=== PATIENT | female | born 1990 | race American Indian/Alaskan Native ===

== ENCOUNTER 2018-11-30 23:16 | Emergency (ER) | payer SELFPAY ==
[2018-11-30 23:54] LABS: Basophils % (Auto) 0.3 % (0.0-1.8); Eosinophils # (Auto) 0.1 K/mm3 (0.0-0.4); Eosinophils % (Auto) 1.5 % (0.0-4.3); Hemoglobin 14.4 gm/dl (10.1-14.3); Lymphocytes # (Auto) 3.6 K/mm3 (1.2-5.4); Lymphocytes % (Auto) 38.2 % (13.4-35.0); Mean Corpuscular HGB Conc 34 % (30-34); Mean Corpuscular Volume 85 fl (79-97); Monocytes # (Auto) 0.5 K/mm3 (0.0-0.8); Monocytes % (Auto) 5.8 % (0.0-7.3); Platelet Count 234 K/mm3 (140-440); Red Blood Count 4.92 M/mm3 (3.65-5.03); Red Cell Distribution Width 12.8 % (13.2-15.2)
[2018-11-30 23:58] LABS: Bilirubin,Urine NEG (Negative); Blood,Urine NEG (Negative); Color,Urine Yellow (Yellow); Protein,Urine <15 mg/dL mg/dL (Negative); Urobilinogen,Urine < 2.0 mg/dL (<2.0)
[2018-12-01 00:11] LABS: Alanine Aminotransferase 11 units/L (7-56); Albumin 3.8 g/dL (3.9-5); BUN/Creatinine Ratio 23; Blood Urea Nitrogen 16 mg/dL (7-17); Calcium 8.9 mg/dL (8.4-10.2); Hemolysis Index 22
[2018-12-01] MEDS ORDERED: SODIUM CHLORIDE 0.9% 1000 ML 1,000 ML IV ONE ×2 (00:42→02:16)
[2018-12-01] MEDS ORDERED: INSULIN REGULAR, HUMAN 100 UNITS/1 ML IV ONE (00:43)
--- NOTE | 2018-12-01 00:44 | Emergency Department Report ---
ED General Adult HPI - General Chief complaint: Hyperglycemia Stated complaint: POSS HIGH SUGAR/MED REFILL Time Seen by Provider: 12/01/18 00:29 Source: patient Mode of arrival: Ambulatory Limitations: No Limitations - History of Present Illness Initial comments: 28-year-old female with a history of diabetes currently taking insulin twice a day presents to ED complaining of not feeling well vomiting started today. Patient states that she's been out of her insulin for the past 2 days. Patient reports that she feels a pressure glucose is elevated disaffected affect is not from well and she is frequently urinating. sHe denies chest pain, abdominal pain, shortness of breath, blurry vision or any other symptoms. - Related Data Previous Rx's Medication Instructions Recorded Last Taken Type Insulin Aspart [NovoLOG 100 10 units SQ BID #200 units 12/01/18 Unknown Rx UNITS/ML VIAL] Allergies Allergy/AdvReac Type Severity Reaction Status Date / Time No Known Allergies Allergy Unverified 11/30/18 23:32 ED Review of Systems ROS: Stated complaint: POSS HIGH SUGAR/MED REFILL Other details as noted in HPI Comment: All other systems reviewed and negative ED Past Medical Hx - Past Medical History Previous Medical History?: Yes Hx Diabetes: Yes (Type 1) - Surgical History Past Surgical History?: No - Social History Smoking Status: Current Every Day Smoker Substance Use Type: Marijuana - Medications Home Medications: Home Medications Medication Instructions Recorded Confirmed Last Taken Type Insulin Aspart [NovoLOG 100 10 units SQ BID #200 units 12/01/18 Unknown Rx UNITS/ML VIAL] ED Physical Exam - General Limitations: No Limitations General appearance: alert, in no apparent distress - Head Head exam: Present: atraumatic, normocephalic - Eye Eye exam: Present: normal appearance - ENT ENT exam: Present: mucous membranes moist - Neck Neck exam: Present: normal inspection - Respiratory Respiratory exam: Present: normal lung sounds bilaterally. Absent: respiratory distress, wheezes, rales - Cardiovascular Cardiovascular Exam: Present: regular rate, normal rhythm. Absent: systolic murmur, diastolic murmur, rubs, gallop - GI/Abdominal GI/Abdominal exam: Present: soft, normal bowel sounds. Absent: distended, tenderness - Extremities Exam Extremities exam: Present: normal inspection, full ROM - Back Exam Back exam: Present: normal inspection, full ROM. Absent: CVA tenderness (R), CVA tenderness (L) - Neurological Exam Neurological exam: Present: alert, oriented X3, normal gait - Psychiatric Psychiatric exam: Present: normal affect, normal mood - Skin Skin exam: Present: warm, dry, intact, normal color. Absent: rash ED Course Vital Signs 11/30/18 12/01/18 23:24 00:30 Temperature 97.5 F L 97.6 F Pulse Rate 110 H 93 H Respiratory 18 22 Rate Blood Pressure 144/101 Blood Pressure 129/85 [Left] O2 Sat by Pulse 97 99 Oximetry ED Medical Decision Making - Lab Data Result diagrams: 11/30/18 23:34 11/30/18 23:34 Laboratory Last Values WBC 9.4 K/mm3 (4.5-11.0) 11/30/18 23:34 RBC 4.92 M/mm3 (3.65-5.03) 11/30/18 23:34 Hgb 14.4 gm/dl (10.1-14.3) H 11/30/18 23:34 Hct 42.0 % (30.3-42.9) 11/30/18 23:34 MCV 85 fl (79-97) 11/30/18 23:34 MCH 29 pg (28-32) 11/30/18 23:34 MCHC 34 % (30-34) 11/30/18 23:34 RDW 12.8 % (13.2-15.2) L 11/30/18 23:34 Plt Count 234 K/mm3 (140-440) 11/30/18 23:34 Lymph % (Auto) 38.2 % (13.4-35.0) H 11/30/18 23:34 Howard % (Auto) 5.8 % (0.0-7.3) 11/30/18 23:34 Eos % (Auto) 1.5 % (0.0-4.3) 11/30/18 23:34 Baso % (Auto) 0.3 % (0.0-1.8) 11/30/18 23:34 Lymph # 3.6 K/mm3 (1.2-5.4) 11/30/18 23:34 Howard # 0.5 K/mm3 (0.0-0.8) 11/30/18 23:34 Eos # 0.1 K/mm3 (0.0-0.4) 11/30/18 23:34 Baso # 0.0 K/mm3 (0.0-0.1) 11/30/18 23:34 Seg Neutrophils % 54.2 % (40.0-70.0) 11/30/18 23:34 Seg Neutrophils # 5.1 K/mm3 (1.8-7.7) 11/30/18 23:34 VBG pH 7.349 (7.320-7.420) 11/30/18 23:34 Sodium 136 mmol/L (137-145) L 11/30/18 23:34 Potassium 4.3 mmol/L (3.6-5.0) 11/30/18 23:34 Chloride 101.0 mmol/L (98-107) 11/30/18 23:34 Carbon Dioxide 22 mmol/L (22-30) 11/30/18 23:34 Anion Gap 17 mmol/L 11/30/18 23:34 BUN 16 mg/dL (7-17) 11/30/18 23:34 Creatinine 0.7 mg/dL (0.7-1.2) 11/30/18 23:34 Estimated GFR > 60 ml/min 11/30/18 23:34 BUN/Creatinine Ratio 23 % 11/30/18 23:34 Glucose 368 mg/dL (65-100) H 11/30/18 23:34 POC Glucose 332 (70-105) H 11/30/18 23:35 Calcium 8.9 mg/dL (8.4-10.2) 11/30/18 23:34 Total Bilirubin < 0.20 mg/dL (0.1-1.2) 11/30/18 23:34 AST 12 units/L (5-40) 11/30/18 23:34 ALT 11 units/L (7-56) 11/30/18 23:34 Alkaline Phosphatase 81 units/L (35-129) 11/30/18 23:34 Total Protein 7.8 g/dL (6.3-8.2) 11/30/18 23:34 Albumin 3.8 g/dL (3.9-5) L 11/30/18 23:34 Albumin/Globulin Ratio 1.0 % 11/30/18 23:34 Urine Color Yellow (Yellow) 11/30/18 Unknown Urine Turbidity Slightly-cloudy (Clear) 11/30/18 Unknown Urine pH 6.0 (5.0-7.0) 11/30/18 Unknown Ur Specific Mcclure 1.027 (1.003-1.030) 11/30/18 Unknown Urine Protein <15 mg/dl mg/dL (Negative) 11/30/18 Unknown Urine Glucose (UA) >=500 mg/dL (Negative) 11/30/18 Unknown Urine Ketones Neg mg/dL (Negative) 11/30/18 Unknown Urine Blood Neg (Negative) 11/30/18 Unknown Urine Nitrite Neg (Negative) 11/30/18 Unknown Urine Bilirubin Neg (Negative) 11/30/18 Unknown Urine Urobilinogen < 2.0 mg/dL (<2.0) 11/30/18 Unknown Ur Leukocyte Esterase Neg (Negative) 11/30/18 Unknown Urine WBC (Auto) 1.0 /HPF (0.0-6.0) 11/30/18 Unknown Urine RBC (Auto) 3.0 /HPF (0.0-6.0) 11/30/18 Unknown U Epithel Cells (Auto) 8.0 /HPF (0-13.0) 11/30/18 Unknown - Medical Decision Making 28-year-old female with a history of diabetes presents with hyperglycemia. blood glucose was 332. All labs within normal limits. Urinalysis negative for infection. Patient received IV fluids resuscitation ED, 10 units of insulin and Reglan given. Glucose. Blood glucose decreased 143. Discussed the patient will follow up with primary care physician in 3- 5 days. Referrals given. Patient reports feeling much better prior to discharge. Patient discharged with medication refill and Instructions. Patient is in no acute distress. Critical Care Time: Yes Critical care time in (mins) excluding proc time.: 30 Critical care attestation.: If time is entered above; I have spent that time in minutes in the direct care of this critically ill patient, excluding procedure time. ED Disposition Clinical Impression: Hyperglycemia, Diabetes mellitus Disposition: - TO HOME OR SELFCARE Is pt being admited?: No Does the pt Need Aspirin: No Condition: Stable Instructions: Diabetes Mellitus Type 2 in Adults (ED) Additional Instructions: Make sure to follow up with the primary care physician as discussed. Take all your medications as you've been prescribed. If you have any worsening symptoms or develop new symptoms please return to ED immediately. Prescriptions: Insulin Aspart [NovoLOG 100 UNITS/ML VIAL] 10 units SQ BID #200 units Referrals: [facility] [Outside] - 3-5 Days [facility] [Outside] - 3-5 Days Forms: Accompanied Note, Work/School Release Form(ED) Time of Disposition: 03:00
[2018-12-01] MEDS ORDERED: METOCLOPRAMIDE 10 MG/2 ML INJ IV ONE (01:28)
[2018-12-01 03:34] VITALS: BP 113/77
== END 2018-12-01 03:32 | disposition home or self-care (01) ==
LOC: ED 23:16
DX: E10.65 Type 1 diabetes mellitus with hyperglycemia (principal); F17.200 Nicotine dependence, unspecified, uncomplicated; F12.10 Cannabis abuse, uncomplicated
CPT/HCPCS: 36415; 80053; 81001; 82805; 82962; 85025; 96361; 96374; 96375; 99283; J2765; J7030; J1815

== ENCOUNTER 2019-02-17 09:41 | Emergency (ER) | payer SELFPAY ==
[2019-02-17 10:09] VITALS: BP 134/90
--- NOTE | 2019-02-17 10:54 | Emergency Department Report ---
ED ENT HPI - General Chief complaint: Dental/Oral Stated complaint: HEADACHE/TOOTHACHE Time Seen by Provider: 02/17/19 10:49 Source: patient Mode of arrival: Ambulatory Limitations: No Limitations - History of Present Illness Initial comments: pt is a 28 yo female who presents to the ED with c/o left upper dental pain that began a couple months ago. she states a month ago she was started on antibiotics by a dentist before they would extract the tooth. she states after completing the abx she never followed back up with the dentist for extraction. she denies any fever, no facial swelling. PMHx Dm. no allergies to meds. - Related Data Previous Rx's Medication Instructions Recorded Last Taken Type Insulin Aspart (Nf) [NovoLOG 100 10 units SQ BID #200 units 12/01/18 Unknown Rx UNITS/ML VIAL] Allergies Allergy/AdvReac Type Severity Reaction Status Date / Time No Known Allergies Allergy Unverified 11/30/18 23:32 ED Dental HPI - General Chief complaint: Dental/Oral Stated complaint: HEADACHE/TOOTHACHE Time Seen by Provider: 02/17/19 10:49 Source: patient Mode of arrival: Ambulatory Limitations: No Limitations - Related Data Previous Rx's Medication Instructions Recorded Last Taken Type Insulin Aspart (Nf) [NovoLOG 100 10 units SQ BID #200 units 12/01/18 Unknown Rx UNITS/ML VIAL] Allergies Allergy/AdvReac Type Severity Reaction Status Date / Time No Known Allergies Allergy Unverified 11/30/18 23:32 ED Review of Systems ROS: Stated complaint: HEADACHE/TOOTHACHE Other details as noted in HPI Comment: All other systems reviewed and negative ED Past Medical Hx - Past Medical History Previous Medical History?: Yes Hx Diabetes: Yes (Type 1) - Surgical History Past Surgical History?: No - Social History Smoking Status: Current Some Day Smoker Substance Use Type: Alcohol, Marijuana - Medications Home Medications: Home Medications Medication Instructions Recorded Confirmed Last Taken Type Insulin Aspart (Nf) [NovoLOG 100 10 units SQ BID #200 units 12/01/18 Unknown Rx UNITS/ML VIAL] ED Physical Exam - General Limitations: No Limitations General appearance: alert, in no apparent distress - Head Head exam: Present: atraumatic, normocephalic - Eye Eye exam: Present: normal appearance - ENT ENT exam: Present: normal orophraynx, mucous membranes moist, other (cracked tooth present to the left upper jaw, no edema or induration of the gum line, no facial edema, uvula is midline, no uvular edema) - Respiratory Respiratory exam: Present: normal lung sounds bilaterally. Absent: respiratory distress, wheezes, rales, rhonchi, stridor, chest wall tenderness, accessory muscle use, decreased breath sounds, prolonged expiratory - Cardiovascular Cardiovascular Exam: Present: regular rate, normal rhythm, normal heart sounds. Absent: systolic murmur, diastolic murmur, rubs, gallop - Neurological Exam Neurological exam: Present: alert, oriented X3 - Psychiatric Psychiatric exam: Present: normal affect, normal mood - Skin Skin exam: Present: warm, dry, intact ED Course Vital Signs 02/17/19 10:03 Temperature 98.9 F Pulse Rate 124 H Respiratory 18 Rate Blood Pressure 134/90 O2 Sat by Pulse 96 Oximetry ED Medical Decision Making - Medical Decision Making pt is a 28 yo female who presents to the ED with c/o left upper dental pain that began a couple months ago. she states a month ago she was started on antibiotics by a dentist before they would extract the tooth. she states after completing the abx she never followed back up with the dentist for extraction. she denies any fever, no facial swelling. PMHx Dm. no allergies to meds. initial vitals with tachycardia which improved upon repeat, I placed sensor on pt in triage exam room and her repeat HR was 95 and oxygen saturation 97% on RA. on exam: cracked tooth present to the left upper jaw, no edema or induration of the gum line, no facial edema, uvula is midline, no uvular edema. There is no signs of dental infection, dental abscess, facial cellulitis. advised pt to please follow up with a dentist in the next 2-3 days. may take tylenol or ibuprofen for any pain. return to the emergency room for any new or worsening symptoms. There is no medical emergency at this time Medical screening examination performed there is no threat to life or limb pt needs to follow up with a dentist for further evaluation and management Critical care attestation.: If time is entered above; I have spent that time in minutes in the direct care of this critically ill patient, excluding procedure time. ED Disposition Clinical Impression: Cracked tooth, Toothache Disposition: - MED SCREENING EXAM-LEFT Is pt being admited?: No Does the pt Need Aspirin: No Condition: Stable Instructions: Dental Caries (ED), Toothache (ED) Additional Instructions: please follow up with a dentist in the next 2-3 days. may take tylenol or ibuprofen for any pain. return to the emergency room for any new or worsening symptoms. Referrals: [facility] [Outside] - 2-3 Days Forms: Work/School Release Form(ED) Time of Disposition: 10:54 Print Language: BOLIVIAN
== END 2019-02-17 10:58 | disposition left against medical advice (07) ==
LOC: ED 09:41
DX: K03.81 Cracked tooth (principal); F17.200 Nicotine dependence, unspecified, uncomplicated; F12.10 Cannabis abuse, uncomplicated; E10.9 Type 1 diabetes mellitus without complications
CPT/HCPCS: 99281

== ENCOUNTER → 2019-02-22 17:10 | Emergency (ER) | payer SELFPAY | END | disposition left against medical advice (07) | LOC: ED 17:10 | DX: R05 Cough (principal); Z53.21 Procedure and treatment not carried out due to patient leaving prior to being seen by health care provider ==

== ENCOUNTER 2019-04-06 21:59 | Emergency (ER) | payer SELFPAY ==
[2019-04-06] MEDS ORDERED: BUTALB/ACETAMINOPHEN/CAFFEINE TAB PO ONE (22:21)
[2019-04-06] MEDS ORDERED: SODIUM CHLORIDE 0.9% 1000 ML 1,000 ML IV ONE (22:22)
--- NOTE | 2019-04-06 22:26 | Emergency Department Report ---
HPI - General Chief Complaint: Syncope Time Seen by Provider: 04/06/19 22:10 - HPI HPI: Room 24 The patient is a 28-year-old female presenting with chief complaint of syncope. The patient states she donated plasma earlier this evening at approximately 17:00. The patient states this evening she began to feel dizzy and numb diffusely had a syncopal episode. Family reported the patient struck her head or fall. Patient is amnestic to the event. He now complains of left frontal headache. Patient states she ate 2 pieces of chicken and sipped some beer after donating plasma but did not drink a lot of fluids. Patient denies chest pain or shortness of breath Location: [See above] Duration: [See above] Quality: [See above] Severity: [See above] Timing: [See above] Context: [See above] Modifying factors: [See above] Associated signs and symptoms: [see above] ED Past Medical Hx - Past Medical History Previous Medical History?: Yes Hx Hypertension: Yes Hx Diabetes: Yes (Type 1) - Surgical History Past Surgical History?: No - Family History Family history: no significant - Social History Smoking Status: Current Some Day Smoker (occasional) Substance Use Type: None (denies illicit drug use), Alcohol (occasional) - Medications Home Medications: Home Medications Medication Instructions Recorded Confirmed Last Taken Type Insulin Aspart (Nf) [NovoLOG 100 10 units SQ BID #200 units 12/01/18 Unknown Rx UNITS/ML VIAL] Butalb/Acetamin/Caff 50-325-40 1 tab PO Q8HR PRN #10 tablet 04/06/19 Unknown Rx [Fioricet 50-325-40] ED Review of Systems ROS: Stated complaint: SYNCOPAL EPISODE/HEADACHE Other details as noted in HPI Neurological: headache Physical Exam - Physical Exam Vital Signs: Vital Signs 04/06/19 22:11 Temperature 98.5 F Pulse Rate 101 H Respiratory 18 Rate Blood Pressure 95/61 O2 Sat by Pulse 97 Oximetry Physical Exam: GENERAL: The patient is well-developed well-nourished female lying on stretcher not appearing to be in acute distress. [] HEENT: Normocephalic. Atraumatic. Extraocular motions are intact. Patient has moist mucous membranes. NECK: Supple. No meningitic signs are noted. There is no adenopathy noted. CHEST/LUNGS: Clear to auscultation. There is no respiratory distress noted. HEART/CARDIOVASCULAR: Regular. There is no tachycardia. There is no gallop rub or murmur. ABDOMEN: Abdomen is soft, nontender. Patient has normal bowel sounds. There is no abdominal distention. SKIN: There is no rash. There is no edema. There is no diaphoresis. NEURO: The patient is awake, alert, and oriented. The patient is cooperative. The patient has no focal neurologic deficits. The patient has normal speech. Cranial nerves II through XII grossly intact MUSCULOSKELETAL: There is no evidence of acute injury. ED Course Vital Signs 04/06/19 22:11 Temperature 98.5 F Pulse Rate 101 H Respiratory 18 Rate Blood Pressure 95/61 O2 Sat by Pulse 97 Oximetry - Reevaluation(s) Reevaluation #1: 04/06/19 23:53 Patient states she feels good. Studies reviewed with patient and visitor ED Medical Decision Making - Lab Data Result diagrams: 04/06/19 22:27 04/06/19 22:27 Laboratory Tests 04/06/19 04/06/19 04/06/19 22:27 22:27 22:27 WBC 8.4 RBC 4.94 Hgb 14.8 H Hct 42.1 MCV 85 MCH 30 MCHC 35 H RDW 13.7 Plt Count 197 Lymph % (Auto) 27.8 Appling % (Auto) 5.1 Eos % (Auto) 1.0 Baso % (Auto) 0.3 Lymph # 2.4 Appling # 0.4 Eos # 0.1 Baso # 0.0 Seg Neutrophils % 65.8 Seg Neutrophils # 5.6 D-Dimer 181.74 Sodium 133 L Potassium 4.2 Chloride 98.6 Carbon Dioxide 22 Anion Gap 17 BUN 9 Creatinine 0.7 Estimated GFR > 60 BUN/Creatinine Ratio 13 Glucose 319 H Calcium 8.6 Total Creatine Kinase 63 CK-MB (CK-2) 1.2 CK-MB (CK-2) Rel Index 1.9 Troponin T TSH Free T4 HCG, Qual Plasma/Serum Alcohol 04/06/19 04/06/19 04/06/19 22:27 22:27 22:27 WBC RBC Hgb Hct MCV MCH MCHC RDW Plt Count Lymph % (Auto) Appling % (Auto) Eos % (Auto) Baso % (Auto) Lymph # Appling # Eos # Baso # Seg Neutrophils % Seg Neutrophils # D-Dimer Sodium Potassium Chloride Carbon Dioxide Anion Gap BUN Creatinine Estimated GFR BUN/Creatinine Ratio Glucose Calcium Total Creatine Kinase CK-MB (CK-2) CK-MB (CK-2) Rel Index Troponin T < 0.010 TSH 1.350 Free T4 1.15 HCG, Qual Plasma/Serum Alcohol < 0.01 04/06/19 22:27 WBC RBC Hgb Hct MCV MCH MCHC RDW Plt Count Lymph % (Auto) Appling % (Auto) Eos % (Auto) Baso % (Auto) Lymph # Appling # Eos # Baso # Seg Neutrophils % Seg Neutrophils # D-Dimer Sodium Potassium Chloride Carbon Dioxide Anion Gap BUN Creatinine Estimated GFR BUN/Creatinine Ratio Glucose Calcium Total Creatine Kinase CK-MB (CK-2) CK-MB (CK-2) Rel Index Troponin T TSH Free T4 HCG, Qual Negative Plasma/Serum Alcohol - EKG Data -: EKG Interpreted by Pa EKG shows normal: sinus rhythm Rate: normal - EKG Data When compared to previous EKG there are: previous EKG unavailable Interpretation: nonspecific ST-T wave tank (T-wave inversions in leads 3 and aVF) - Radiology Data Radiology results: report reviewed (CT head), image reviewed (CT head) [facility] [address] [place] [address] Cat Scan Report Signed Patient: FER BISHOP MR#: [id number] 9 : 1990 Acct:[id number] Age/Sex: 28 / F ADM Date: 04/06/19 Loc: ED Attending Dr: Ordering Physician: KAMRYN CRAIG MD Date of Service: 04/06/19 Procedure(s): CT head/brain wo con Accession Number(s): [id number] cc: KAMRYN CRAIG MD CT HEAD WITHOUT CONTRAST INDICATION : syncopal episode, headache. TECHNIQUE: Axial, coronal and sagittal CT imaging was performed from the skull apex through the skull base without contrast. All CT scans at this location are performed using CT dose reduction for ALARA by means of automated exposure control. COMPARISON: None available. FINDINGS: PARENCHYMA: No mass, midline shift, hemorrhage, extraaxial collection or acute territorial infarction. VENTRICLES: Symmetric and normal in size. SOFT TISSUES: No significant abnormality of the included soft tissues/orbits. BONES: No acute osseous abnormality. SINUSES: No significant abnormality. ADDITIONAL FINDINGS: None. IMPRESSION: No acute intracranial abnormality. Signer Name: Yuval Miles MD Signed: 04/06/2019 11:03 PM Workstation Name: [id number] Transcribed By: LEE Dictated By: Yuval Miles MD Electronically Authenticated By: Yuval Miles MD Signed Date/Time: 04/06/192302 DD/ 01 TD/TT: - Differential Diagnosis dehydration, hypovolemia, anemia, PE, ACS, ICH Critical care attestation.: If time is entered above; I have spent that time in minutes in the direct care of this critically ill patient, excluding procedure time. ED Disposition Clinical Impression: Syncope Disposition: DC- TO HOME OR SELFCARE Is pt being admited?: No Does the pt Need Aspirin: No Condition: Stable Instructions: Syncope (ED) Additional Instructions: Return to the emergency department should you develop worsening symptoms, inability to tolerate food or liquids, high fever or any other concerns Prescriptions: Butalb/Acetamin/Caff 50-325-40 [Fioricet 50-325-40] 1 tab PO Q8HR PRN #10 tablet PRN Reason: Headache Referrals: [facility] [Outside] - 3-5 Days KYLE OMER MD [Staff Physician] - 3-5 Days Time of Disposition: 23:55
[2019-04-06 22:43] LABS: Basophils % (Auto) 0.3 % (0.0-1.8); Eosinophils # (Auto) 0.1 K/mm3 (0.0-0.4); Hematocrit 42.1 % (30.3-42.9); Hemoglobin 14.8 gm/dl (10.1-14.3); Lymphocytes # (Auto) 2.4 K/mm3 (1.2-5.4); Lymphocytes % (Auto) 27.8 % (13.4-35.0); Mean Corpuscular HGB Conc 35 % (30-34); Mean Corpuscular Volume 85 fl (79-97); Monocytes # (Auto) 0.4 K/mm3 (0.0-0.8); Monocytes % (Auto) 5.1 % (0.0-7.3); Platelet Count 197 K/mm3 (140-440); Red Blood Count 4.94 M/mm3 (3.65-5.03); Red Cell Distribution Width 13.7 % (13.2-15.2)
[2019-04-06 22:59] LABS: BUN/Creatinine Ratio 13; Blood Urea Nitrogen 9 mg/dL (7-17); Calcium 8.6 mg/dL (8.4-10.2); Hemolysis Index 5
--- NOTE | 2019-04-06 23:07 | Cat Scan Report ---
CT HEAD WITHOUT CONTRAST INDICATION : syncopal episode, headache. TECHNIQUE: Axial, coronal and sagittal CT imaging was performed from the skull apex through the skul l base without contrast. All CT scans at this location are performed using CT dose reduction for ALA RA by means of automated exposure control. COMPARISON: None available. FINDINGS: PARENCHYMA: No mass, midline shift, hemorrhage, extraaxial collection or acute territorial infarctio n. VENTRICLES: Symmetric and normal in size. SOFT TISSUES: No significant abnormality of the included soft tissues/orbits. BONES: No acute osseous abnormality. SINUSES: No significant abnormality. ADDITIONAL FINDINGS: None. IMPRESSION: No acute intracranial abnormality. Signer Name: Yuval Miles MD Signed: 04/06/2019 11:03 PM Workstation Name: [id number]
[2019-04-06 23:16] LABS: Free T4 (Free Thyroxine) 1.15 ng/dL (0.76-1.46)
[2019-04-06 23:37] LABS: Creatine Kinase MB 1.2 ng/mL (0.0-4.0)
[2019-04-07 00:56] VITALS: BP 109/68
== END 2019-04-07 00:57 | disposition home or self-care (01) ==
LOC: ED 21:59
DX: R55 Syncope and collapse (principal); I10 Essential (primary) hypertension; E10.9 Type 1 diabetes mellitus without complications; F17.200 Nicotine dependence, unspecified, uncomplicated; Z79.899 Other long term (current) drug therapy
CPT/HCPCS: 36415; 70450; 80048; 82550; 82553; 84439; 84443; 84484; 84703; 85025; 85379; 93005; 93010; 96360; 99284; J7030; 80320; G0480

== ENCOUNTER 2019-05-12 05:34 | Emergency (ER) | payer SELFPAY ==
[2019-05-12 06:07] LABS: Basophils % (Auto) 0.3 % (0.0-1.8); Eosinophils # (Auto) 0.1 K/mm3 (0.0-0.4); Eosinophils % (Auto) 1.4 % (0.0-4.3); Hematocrit 40.3 % (30.3-42.9); Hemoglobin 13.9 gm/dl (10.1-14.3); Lymphocytes # (Auto) 2.4 K/mm3 (1.2-5.4); Lymphocytes % (Auto) 37.2 % (13.4-35.0); Mean Corpuscular HGB Conc 35 % (30-34); Mean Corpuscular Volume 86 fl (79-97); Monocytes # (Auto) 0.4 K/mm3 (0.0-0.8); Monocytes % (Auto) 6.5 % (0.0-7.3); Platelet Count 232 K/mm3 (140-440); Red Cell Distribution Width 13.3 % (13.2-15.2)
[2019-05-12 06:25] LABS: BUN/Creatinine Ratio 14; Blood Urea Nitrogen 10 mg/dL (7-17); Calcium 8.4 mg/dL (8.4-10.2); Hemolysis Index 27
[2019-05-12 06:46] LABS: HCG Qualitative,Urine Negative (Negative)
[2019-05-12 06:48] LABS: Bilirubin,Urine NEG (Negative); Blood,Urine NEG (Negative); Color,Urine Yellow (Yellow); Protein,Urine <15 mg/dL mg/dL (Negative); Urobilinogen,Urine < 2.0 mg/dL (<2.0)
[2019-05-12 08:45] VITALS: BP 136/92
[2019-05-12] MEDS ORDERED: SODIUM CHLORIDE 0.9% 1000 ML 1,000 ML IV ONE (09:49)
--- NOTE | 2019-05-12 10:07 | Emergency Department Report ---
ED General Adult HPI - General Chief complaint: Hyperglycemia Stated complaint: SORE THROAT, ELEVATED BLOOD SUGAR Time Seen by Provider: 05/12/19 09:47 Source: patient Mode of arrival: Ambulatory Limitations: No Limitations - History of Present Illness Initial comments: This is a 28-year-old -Irish female who presents to the emergency room with hyperglycemia. Past medical history of diabetes type 1 and hypertension. Patient states she ran out of insulin 2 weeks ago. She continue to get readings in the high 200s and 300s. Patient also reports sore throat for 1 week. She denies urinary frequency, urgency, vaginal discharge, pruritus, and dipsesis. Onset/Timin -: week(s) Severity scale (0 -10): 0 Quality: aching Consistency: intermittent Improves with: none Worsens with: eating Associated Symptoms: other (Sore throat). denies: confusion, chest pain, cough, diaphoresis, fever/chills, headaches, loss of appetite, malaise, naus ea/vomiting, rash, seizure, shortness of breath, syncope, weakness Treatments Prior to Arrival: none - Related Data Previous Rx's Medication Instructions Recorded Last Taken Type Insulin Aspart (Nf) [NovoLOG 100 10 units SQ BID #200 units 12/01/18 Unknown Rx UNITS/ML VIAL] Butalb/Acetamin/Caff 50-325-40 1 tab PO Q8HR PRN #10 tablet 04/06/19 Unknown Rx [Fioricet 50-325-40] Insulin NPH Hum/Reg Insulin Hm 100 unit SQ BID #1 vial 05/12/19 Unknown Rx [Novolin 70-30 100 Unit/ml Vial] Allergies Allergy/AdvReac Type Severity Reaction Status Date / Time No Known Allergies Allergy Verified 05/12/19 05:38 ED Review of Systems ROS: Stated complaint: SORE THROAT, ELEVATED BLOOD SUGAR Other details as noted in HPI Constitutional: denies: chills, fever ENT: throat pain. denies: dental pain, hearing loss, epistaxis, congestion Respiratory: denies: cough, shortness of breath, wheezing Cardiovascular: denies: chest pain, palpitations Endocrine: no symptoms reported Gastrointestinal: denies: abdominal pain, nausea, diarrhea Genitourinary: denies: urgency, dysuria, discharge Musculoskeletal: denies: back pain, joint swelling, arthralgia Skin: denies: rash, lesions Neurological: denies: headache, weakness, paresthesias Psychiatric: denies: anxiety, depression ED Past Medical Hx - Past Medical History Previous Medical History?: Yes Hx Hypertension: Yes Hx Diabetes: Yes (Type 1) - Surgical History Past Surgical History?: No - Social History Smoking Status: Current Every Day Smoker Substance Use Type: Marijuana - Medications Home Medications: Home Medications Medication Instructions Recorded Confirmed Last Taken Type Insulin Aspart (Nf) [NovoLOG 100 10 units SQ BID #200 units 12/01/18 Unknown Rx UNITS/ML VIAL] Butalb/Acetamin/Caff 50-325-40 1 tab PO Q8HR PRN #10 tablet 04/06/19 Unknown Rx [Fioricet 50-325-40] Insulin NPH Hum/Reg Insulin Hm 100 unit SQ BID #1 vial 05/12/19 Unknown Rx [Novolin 70-30 100 Unit/ml Vial] ED Physical Exam - General Limitations: No Limitations General appearance: alert, in no apparent distress, obese (morbidly) - ENT ENT exam: Present: normal orophraynx, mucous membranes moist, TM's normal bilaterally, normal external ear exam - Respiratory Respiratory exam: Present: normal lung sounds bilaterally. Absent: respiratory distress - Cardiovascular Cardiovascular Exam: Present: regular rate, normal rhythm. Absent: systolic murmur, diastolic murmur, rubs, gallop - GI/Abdominal GI/Abdominal exam: Present: soft, normal bowel sounds. Absent: distended, tenderness, guarding, rebound, rigid - Extremities Exam Extremities exam: Present: normal inspection - Neurological Exam Neurological exam: Present: alert, oriented X3, normal gait - Psychiatric Psychiatric exam: Present: normal affect, normal mood - Skin Skin exam: Present: warm, dry, intact, normal color. Absent: rash ED Course Vital Signs 05/12/19 05/12/19 05:38 08:44 Temperature 98.0 F Pulse Rate 92 H 81 Respiratory 18 18 Rate Blood Pressure 158/84 Blood Pressure 136/92 [Right] O2 Sat by Pulse 97 98 Oximetry ED Medical Decision Making - Lab Data Result diagrams: 05/12/19 05:55 05/12/19 05:55 Lab Results 05/12/19 05/12/19 05/12/19 Range/Units 05:52 05:55 05:55 WBC 6.4 (4.5-11.0) K/mm3 RBC 4.70 (3.65-5.03) M/mm3 Hgb 13.9 (10.1-14.3) gm/dl Hct 40.3 (30.3-42.9) % MCV 86 (79-97) fl MCH 30 (28-32) pg MCHC 35 H (30-34) % RDW 13.3 (13.2-15.2) % Plt Count 232 (140-440) K/mm3 Lymph % (Auto) 37.2 H (13.4-35.0) % [place] % (Auto) 6.5 (0.0-7.3) % Eos % (Auto) 1.4 (0.0-4.3) % Baso % (Auto) 0.3 (0.0-1.8) % Lymph # 2.4 (1.2-5.4) K/mm3 Mason # 0.4 (0.0-0.8) K/mm3 Eos # 0.1 (0.0-0.4) K/mm3 Baso # 0.0 (0.0-0.1) K/mm3 Seg Neutrophils % 54.6 (40.0-70.0) % Seg Neutrophils # 3.5 (1.8-7.7) K/mm3 Sodium 134 L (137-145) mmol/L Potassium 4.2 (3.6-5.0) mmol/L Chloride 100.8 (98-107) mmol/L Carbon Dioxide 20 L (22-30) mmol/L Anion Gap 17 mmol/L BUN 10 (7-17) mg/dL Creatinine 0.7 (0.7-1.2) mg/dL Estimated GFR > 60 ml/min BUN/Creatinine Ratio 14 % Glucose 306 H (65-100) mg/dL POC Glucose 271 H (70-105) Calcium 8.4 (8.4-10.2) mg/dL Urine Color (Yellow) Urine Turbidity (Clear) Urine pH (5.0-7.0) Ur Specific [place] (1.003-1.030) Urine Protein (Negative) mg/dL Urine Glucose (UA) (Negative) mg/dL Urine Ketones (Negative) mg/dL Urine Blood (Negative) Urine Nitrite (Negative) Ur Reducing Substances Urine Bilirubin (Negative) Urine Ictotest Urine Urobilinogen (<2.0) mg/dL Ur Leukocyte Esterase (Negative) Urine WBC (Auto) (0.0-6.0) /HPF Urine RBC (Auto) (0.0-6.0) /HPF U Epithel Cells (Auto) (0-13.0) /HPF Urine HCG, Qual (Negative) Group A Strep Rapid (Negative) 05/12/19 05/12/19 Range/Units 06:14 Unknown WBC (4.5-11.0) K/mm3 RBC (3.65-5.03) M/mm3 Hgb (10.1-14.3) gm/dl Hct (30.3-42.9) % MCV (79-97) fl MCH (28-32) pg MCHC (30-34) % RDW (13.2-15.2) % Plt Count (140-440) K/mm3 Lymph % (Auto) (13.4-35.0) % Mason % (Auto) (0.0-7.3) % Eos % (Auto) (0.0-4.3) % Baso % (Auto) (0.0-1.8) % Lymph # (1.2-5.4) K/mm3 Mason # (0.0-0.8) K/mm3 Eos # (0.0-0.4) K/mm3 Baso # (0.0-0.1) K/mm3 Seg Neutrophils % (40.0-70.0) % Seg Neutrophils # (1.8-7.7) K/mm3 Sodium (137-145) mmol/L Potassium (3.6-5.0) mmol/L Chloride (98-107) mmol/L Carbon Dioxide (22-30) mmol/L Anion Gap mmol/L BUN (7-17) mg/dL Creatinine (0.7-1.2) mg/dL Estimated GFR ml/min BUN/Creatinine Ratio % Glucose (65-100) mg/dL POC Glucose (70-105) Calcium (8.4-10.2) mg/dL Urine Color Yellow (Yellow) Urine Turbidity Slightly-cloudy (Clear) Urine pH 6.0 (5.0-7.0) Ur Specific [place] 1.030 (1.003-1.030) Urine Protein <15 mg/dl (Negative) mg/dL Urine Glucose (UA) >=500 (Negative) mg/dL Urine Ketones Neg (Negative) mg/dL Urine Blood Neg (Negative) Urine Nitrite Neg (Negative) Ur Reducing Substances Not Reportable Urine Bilirubin Neg (Negative) Urine Ictotest Not Reportable Urine Urobilinogen < 2.0 (<2.0) mg/dL Ur Leukocyte Esterase Neg (Negative) Urine WBC (Auto) 1.0 (0.0-6.0) /HPF Urine RBC (Auto) 3.0 (0.0-6.0) /HPF U Epithel Cells (Auto) 9.0 (0-13.0) /HPF Urine HCG, Qual Negative (Negative) Group A Strep Rapid Negative (Negative) - Medical Decision Making This is a 28 y.o. female that presents with elevated blood glucose and sore throat. History of diabetes type 1 and hypertension. Patient ran out of her ScreenHits 70/30 for 2 weeks ago. Vitals are stable and in no acute distress. Obtained BMP, CBC, UA, & rapid strep. Review labs. Glucose 271 on admission. Given NS 1L bolus once. Rapid strep negative. Throat culture pending. Continue current insulin dose and f/u with Endo or PCP in 24-72 hours. Discussed plan with patient and agreed to plan. No further questions noted by the patient. Discharged home in stable condition. Referral to [facility] for continued care. Critical care attestation.: If time is entered above; I have spent that time in minutes in the direct care of this critically ill patient, excluding procedure time. ED Disposition Clinical Impression: Hyperglycemia due to type 1 diabetes mellitus, Sore throat (viral) Disposition: TO HOME OR SELFCARE Is pt being admited?: No Condition: Stable Instructions: Strep Throat (ED), Diabetes Mellitus Type 1 in Adults (ED) Additional Instructions: Never discontinue insulin without discussion with your primary care doctor. Low blood sugar is often accompanied by symptoms such as tachycardia, sweating, shakiness, intense hunger, or confusion, and must be dealt with promptly by eating a carbohydrate such as apple or drink juice. After self-treatment, blood sugar should be checked if possible. Return to ER or f/u with ER promptly is blood glucose drops below 70 or greater than 150 so that therapy may be adjusted. Eat a carbohydrate snack prior to exercise if blood glucose is less than 100. Follow up with a Primary Care Provider doctor from the list provided in 24-72 days. Prescriptions: Insulin NPH Hum/Reg Insulin Hm [Novolin 70-30 100 Unit/ml Vial] 100 unit SQ BID #1 vial Referrals: [facility] [Outside] - 3-5 Days MIGUEL LAMB MD [Staff Physician] - 3-5 Days Forms: Work/School Release Form(ED) Time of Disposition: 10:24
== END 2019-05-12 10:49 | disposition home or self-care (01) ==
LOC: ED 05:34
DX: E10.65 Type 1 diabetes mellitus with hyperglycemia (principal); J02.8 Acute pharyngitis due to other specified organisms; B97.89 Other viral agents as the cause of diseases classified elsewhere; I10 Essential (primary) hypertension; F17.200 Nicotine dependence, unspecified, uncomplicated; F12.10 Cannabis abuse, uncomplicated; Z79.4 Long term (current) use of insulin; Z79.899 Other long term (current) drug therapy
CPT/HCPCS: 36415; 80048; 81001; 81025; 82962; 85025; 87116; 87430; 99283; J7030

== ENCOUNTER 2019-12-09 08:34 | Emergency (ER) | payer SELFPAY ==
[2019-12-09 08:47] VITALS: BP 163/107
[2019-12-09 09:43] LABS: Bilirubin,Urine NEG (Negative); Blood,Urine NEG (Negative); Color,Urine Yellow (Yellow); Protein,Urine <15 mg/dL mg/dL (Negative); Urobilinogen,Urine < 2.0 mg/dL (<2.0)
[2019-12-09 09:46] LABS: HCG Qualitative,Urine Negative (Negative)
[2019-12-09] MEDS ORDERED: SODIUM CHLORIDE 0.9% 1000 ML 1,000 ML IV ONE (10:00)
[2019-12-09] MEDS ORDERED: KETOROLAC 30 MG/1 ML INJ IV ONE (10:00)
[2019-12-09 10:23] LABS: Basophils % (Auto) 0.4 % (0.0-1.8); Eosinophils # (Auto) 0.1 K/mm3 (0.0-0.4); Eosinophils % (Auto) 0.9 % (0.0-4.3); Hematocrit 41.7 % (30.3-42.9); Hemoglobin 14.4 gm/dl (10.1-14.3); Lymphocytes # (Auto) 2.5 K/mm3 (1.2-5.4); Lymphocytes % (Auto) 32.1 % (13.4-35.0); Mean Corpuscular HGB Conc 34 % (30-34); Mean Corpuscular Volume 85 fl (79-97); Monocytes # (Auto) 0.5 K/mm3 (0.0-0.8); Monocytes % (Auto) 6.5 % (0.0-7.3); Platelet Count 239 K/mm3 (140-440); Red Blood Count 4.93 M/mm3 (3.65-5.03); Red Cell Distribution Width 13.4 % (13.2-15.2)
[2019-12-09 10:43] LABS: Alanine Aminotransferase 13 units/L (7-56); Calcium 9.4 mg/dL (8.4-10.2); Hemolysis Index 4
--- NOTE | 2019-12-09 10:53 | Emergency Department Report ---
ED Back Pain/Injury HPI - General Chief Complaint: Back Pain/Injury Stated Complaint: BACK PAIN Time Seen by Provider: 12/09/19 09:59 Source: patient Limitations: No Limitations - History of Present Illness Initial Comments: This is a 29-year-old female nontoxic, well nourished in appearance, no acute signs of distress presents to the ED with c/o of acute on chronic lower back pain. Patient denies any radiation of pain. Patient denies any trauma. Denies any bladder or bowel instability. Patient denies any urinary symptoms. Denies any fever, chills, nausea, vomiting, headache, stiff neck, chest pain or shortness of breath. Patient denies any numbness or tingling. Denies any allergies. PMH includes DM which she has not taken insulin the past 2 days but does have insulin medications at home. MD Complaint: back pain -: days(s) Similar Symptoms Previously: Yes Radiation: none Severity: mild Severity scale (0 -10): 8 Quality: aching Consistency: constant Improves With: immobilization, sitting upright Worsens With: movement, walking Context: while lifting, turning/twisting Associated Symptoms: denies other symptoms. denies: confusion, weakness, chest pain, numbness, difficulty walking, cough, difficulty urinating, diaphoresis, incontinence, fever/chills, constipation, headaches, abdominal pain, loss of appetite, malaise, nausea/vomiting, rash, seizure, shortness of breath, syncope - Related Data Previous Rx's Medication Instructions Recorded Last Taken Type Insulin Aspart (Nf) [NovoLOG 100 10 units SQ BID #200 units 12/01/18 Unknown Rx UNITS/ML VIAL] Butalb/Acetamin/Caff 50-325-40 1 tab PO Q8HR PRN #10 tablet 04/06/19 Unknown Rx [Fioricet 50-325-40] Insulin NPH Hum/Reg Insulin Hm 100 unit SQ BID #1 vial 05/12/19 Unknown Rx [Novolin 70-30 100 Unit/ml Vial] Cyclobenzaprine [Flexeril] 10 mg PO QHS PRN #10 tablet 12/09/19 Unknown Rx Naproxen 500 mg PO Q12H PRN #12 tablet 12/09/19 Unknown Rx Allergies Allergy/AdvReac Type Severity Reaction Status Date / Time No Known Allergies Allergy Verified 05/12/19 05:38 ED Review of Systems ROS: Stated complaint: BACK PAIN Other details as noted in HPI Constitutional: denies: chills, fever Eyes: denies: eye pain, eye discharge, vision change ENT: denies: ear pain, throat pain Respiratory: denies: cough, shortness of breath, wheezing Cardiovascular: denies: chest pain, palpitations Endocrine: no symptoms reported Gastrointestinal: denies: abdominal pain, nausea, diarrhea Genitourinary: denies: urgency, dysuria, discharge Musculoskeletal: back pain. denies: joint swelling, arthralgia Skin: denies: rash, lesions Neurological: denies: headache, weakness, paresthesias Psychiatric: denies: anxiety, depression Hematological/Lymphatic: denies: easy bleeding, easy bruising ED Past Medical Hx - Past Medical History Previous Medical History?: Yes Hx Hypertension: Yes Hx Diabetes: Yes (Type 1) - Surgical History Past Surgical History?: No - Social History Smoking Status: Former Smoker Substance Use Type: None - Medications Home Medications: Home Medications Medication Instructions Recorded Confirmed Last Taken Type Insulin Aspart (Nf) [NovoLOG 100 10 units SQ BID #200 units 12/01/18 Unknown Rx UNITS/ML VIAL] Butalb/Acetamin/Caff 50-325-40 1 tab PO Q8HR PRN #10 tablet 04/06/19 Unknown Rx [Fioricet 50-325-40] Insulin NPH Hum/Reg Insulin Hm 100 unit SQ BID #1 vial 05/12/19 Unknown Rx [Novolin 70-30 100 Unit/ml Vial] Cyclobenzaprine [Flexeril] 10 mg PO QHS PRN #10 tablet 12/09/19 Unknown Rx Naproxen 500 mg PO Q12H PRN #12 tablet 12/09/19 Unknown Rx ED Physical Exam - General Limitations: No Limitations General appearance: alert, in no apparent distress - Head Head exam: Present: atraumatic, normocephalic - Eye Eye exam: Present: normal appearance - Neck Neck exam: Present: normal inspection, full ROM. Absent: tenderness, meningismus, lymphadenopathy - Respiratory Respiratory exam: Present: normal lung sounds bilaterally. Absent: respiratory distress, wheezes, rales, rhonchi, stridor, chest wall tenderness, accessory muscle use, decreased breath sounds, prolonged expiratory - Cardiovascular Cardiovascular Exam: Present: regular rate, normal rhythm, normal heart sounds. Absent: irregular rhythm, systolic murmur, diastolic murmur, rubs, gallop - GI/Abdominal GI/Abdominal exam: Present: soft, normal bowel sounds. Absent: distended, tenderness, guarding, rebound, rigid, diminished bowel sounds - Extremities Exam Extremities exam: Present: normal inspection, full ROM - Back Exam Back exam: Present: normal inspection, full ROM, paraspinal tenderness (lumbar paraspinal). Absent: tenderness, CVA tenderness (R), CVA tenderness (L), muscle spasm, vertebral tenderness, rash noted - Expanded Back Exam Expanded Back exam: Absent: saddle anesthesia Back exam: Negative Straight Leg Raising: Left, Right - Neurological Exam Neurological exam: Present: alert, oriented X3, normal gait - Psychiatric Psychiatric exam: Present: normal affect, normal mood - Skin Skin exam: Present: warm, dry, intact, normal color. Absent: rash ED Course Vital Signs 12/09/19 08:39 Temperature 98.6 F Pulse Rate 97 H Respiratory 20 Rate Blood Pressure 163/107 O2 Sat by Pulse 97 Oximetry - Reevaluation(s) Reevaluation #1: 12/09/19 10:54 Patient is speaking in full sentences with no signs of distress noted. ED Medical Decision Making - Lab Data Result diagrams: 12/09/19 10:07 12/09/19 10:07 Lab Results 12/09/19 12/09/19 12/09/19 Range/Units 09:00 10:07 10:07 WBC 7.7 (4.5-11.0) K/mm3 RBC 4.93 (3.65-5.03) M/mm3 Hgb 14.4 H (10.1-14.3) gm/dl Hct 41.7 (30.3-42.9) % MCV 85 (79-97) fl MCH 29 (28-32) pg MCHC 34 (30-34) % RDW 13.4 (13.2-15.2) % Plt Count 239 (140-440) K/mm3 Lymph % (Auto) 32.1 (13.4-35.0) % Page % (Auto) 6.5 (0.0-7.3) % Eos % (Auto) 0.9 (0.0-4.3) % Baso % (Auto) 0.4 (0.0-1.8) % Lymph # (Auto) 2.5 (1.2-5.4) K/mm3 Page # (Auto) 0.5 (0.0-0.8) K/mm3 Eos # (Auto) 0.1 (0.0-0.4) K/mm3 Baso # (Auto) 0.0 (0.0-0.1) K/mm3 Seg Neutrophils % 60.1 (40.0-70.0) % Seg Neutrophils # 4.6 (1.8-7.7) K/mm3 VBG pH (7.320-7.420) Sodium 135 L (137-145) mmol/L Potassium 4.1 (3.6-5.0) mmol/L Chloride 98.4 (98-107) mmol/L Carbon Dioxide 22 (22-30) mmol/L Anion Gap 19 mmol/L Creatinine 0.6 (0.6-1.2) mg/dL Estimated GFR > 60 ml/min Glucose 295 H (65-100) mg/dL POC Glucose 263 H (70-105) Calcium 9.4 (8.4-10.2) mg/dL Total Bilirubin 0.20 (0.1-1.2) mg/dL AST 12 (5-40) units/L ALT 13 (7-56) units/L Alkaline Phosphatase 63 (35-129) units/L Total Protein 7.7 (6.3-8.2) g/dL Albumin 4.0 (3.9-5) g/dL Albumin/Globulin Ratio 1.1 % Urine Color (Yellow) Urine Turbidity (Clear) Urine pH (5.0-7.0) Ur Specific [place] (1.003-1.030) Urine Protein (Negative) mg/dL Urine Glucose (UA) (Negative) mg/dL Urine Ketones (Negative) mg/dL Urine Blood (Negative) Urine Nitrite (Negative) Urine Bilirubin (Negative) Urine Urobilinogen (<2.0) mg/dL Ur Leukocyte Esterase (Negative) Urine WBC (Auto) (0.0-6.0) /HPF Urine RBC (Auto) (0.0-6.0) /HPF U Epithel Cells (Auto) (0-13.0) /HPF Urine HCG, Qual (Negative) 12/09/19 12/09/19 Range/Units 10:07 Unknown WBC (4.5-11.0) K/mm3 RBC (3.65-5.03) M/mm3 Hgb (10.1-14.3) gm/dl Hct (30.3-42.9) % MCV (79-97) fl MCH (28-32) pg MCHC (30-34) % RDW (13.2-15.2) % Plt Count (140-440) K/mm3 Lymph % (Auto) (13.4-35.0) % Page % (Auto) (0.0-7.3) % Eos % (Auto) (0.0-4.3) % Baso % (Auto) (0.0-1.8) % Lymph # (Auto) (1.2-5.4) K/mm3 Page # (Auto) (0.0-0.8) K/mm3 Eos # (Auto) (0.0-0.4) K/mm3 Baso # (Auto) (0.0-0.1) K/mm3 Seg Neutrophils % (40.0-70.0) % Seg Neutrophils # (1.8-7.7) K/mm3 VBG pH 7.314 L (7.320-7.420) Sodium (137-145) mmol/L Potassium (3.6-5.0) mmol/L Chloride (98-107) mmol/L Carbon Dioxide (22-30) mmol/L Anion Gap mmol/L Creatinine (0.6-1.2) mg/dL Estimated GFR ml/min Glucose (65-100) mg/dL POC Glucose (70-105) Calcium (8.4-10.2) mg/dL Total Bilirubin (0.1-1.2) mg/dL AST (5-40) units/L ALT (7-56) units/L Alkaline Phosphatase (35-129) units/L Total Protein (6.3-8.2) g/dL Albumin (3.9-5) g/dL Albumin/Globulin Ratio % Urine Color Yellow (Yellow) Urine Turbidity Clear (Clear) Urine pH 5.0 (5.0-7.0) Ur Specific [place] 1.025 (1.003-1.030) Urine Protein <15 mg/dl (Negative) mg/dL Urine Glucose (UA) >=500 (Negative) mg/dL Urine Ketones Neg (Negative) mg/dL Urine Blood Neg (Negative) Urine Nitrite Neg (Negative) Urine Bilirubin Neg (Negative) Urine Urobilinogen < 2.0 (<2.0) mg/dL Ur Leukocyte Esterase Neg (Negative) Urine WBC (Auto) 1.0 (0.0-6.0) /HPF Urine RBC (Auto) 3.0 (0.0-6.0) /HPF U Epithel Cells (Auto) 10.0 (0-13.0) /HPF Urine HCG, Qual Negative (Negative) Lab Results 12/09/19 12/09/19 12/09/19 Range/Units 09:00 10:07 10:07 WBC 7.7 (4.5-11.0) K/mm3 RBC 4.93 (3.65-5.03) M/mm3 Hgb 14.4 H (10.1-14.3) gm/dl Hct 41.7 (30.3-42.9) % MCV 85 (79-97) fl MCH 29 (28-32) pg MCHC 34 (30-34) % RDW 13.4 (13.2-15.2) % Plt Count 239 (140-440) K/mm3 Lymph % (Auto) 32.1 (13.4-35.0) % Page % (Auto) 6.5 (0.0-7.3) % Eos % (Auto) 0.9 (0.0-4.3) % Baso % (Auto) 0.4 (0.0-1.8) % Lymph # (Auto) 2.5 (1.2-5.4) K/mm3 Page # (Auto) 0.5 (0.0-0.8) K/mm3 Eos # (Auto) 0.1 (0.0-0.4) K/mm3 Baso # (Auto) 0.0 (0.0-0.1) K/mm3 Seg Neutrophils % 60.1 (40.0-70.0) % Seg Neutrophils # 4.6 (1.8-7.7) K/mm3 VBG pH (7.320-7.420) Sodium 135 L (137-145) mmol/L Potassium 4.1 (3.6-5.0) mmol/L Chloride 98.4 (98-107) mmol/L Carbon Dioxide 22 (22-30) mmol/L Anion Gap 19 mmol/L Creatinine 0.6 (0.6-1.2) mg/dL Estimated GFR > 60 ml/min Glucose 295 H (65-100) mg/dL POC Glucose 263 H (70-105) Calcium 9.4 (8.4-10.2) mg/dL Total Bilirubin 0.20 (0.1-1.2) mg/dL AST 12 (5-40) units/L ALT 13 (7-56) units/L Alkaline Phosphatase 63 (35-129) units/L Total Protein 7.7 (6.3-8.2) g/dL Albumin 4.0 (3.9-5) g/dL Albumin/Globulin Ratio 1.1 % Urine Color (Yellow) Urine Turbidity (Clear) Urine pH (5.0-7.0) Ur Specific [place] (1.003-1.030) Urine Protein (Negative) mg/dL Urine Glucose (UA) (Negative) mg/dL Urine Ketones (Negative) mg/dL Urine Blood (Negative) Urine Nitrite (Negative) Urine Bilirubin (Negative) Urine Urobilinogen (<2.0) mg/dL Ur Leukocyte Esterase (Negative) Urine WBC (Auto) (0.0-6.0) /HPF Urine RBC (Auto) (0.0-6.0) /HPF U Epithel Cells (Auto) (0-13.0) /HPF Urine HCG, Qual (Negative) 12/09/19 12/09/19 12/09/19 Range/Units 10:07 11:54 Unknown WBC (4.5-11.0) K/mm3 RBC (3.65-5.03) M/mm3 Hgb (10.1-14.3) gm/dl Hct (30.3-42.9) % MCV (79-97) fl MCH (28-32) pg MCHC (30-34) % RDW (13.2-15.2) % Plt Count (140-440) K/mm3 Lymph % (Auto) (13.4-35.0) % Page % (Auto) (0.0-7.3) % Eos % (Auto) (0.0-4.3) % Baso % (Auto) (0.0-1.8) % Lymph # (Auto) (1.2-5.4) K/mm3 Page # (Auto) (0.0-0.8) K/mm3 Eos # (Auto) (0.0-0.4) K/mm3 Baso # (Auto) (0.0-0.1) K/mm3 Seg Neutrophils % (40.0-70.0) % Seg Neutrophils # (1.8-7.7) K/mm3 VBG pH 7.314 L (7.320-7.420) Sodium (137-145) mmol/L Potassium (3.6-5.0) mmol/L Chloride (98-107) mmol/L Carbon Dioxide (22-30) mmol/L Anion Gap mmol/L Creatinine (0.6-1.2) mg/dL Estimated GFR ml/min Glucose (65-100) mg/dL POC Glucose 246 H (70-105) Calcium (8.4-10.2) mg/dL Total Bilirubin (0.1-1.2) mg/dL AST (5-40) units/L ALT (7-56) units/L Alkaline Phosphatase (35-129) units/L Total Protein (6.3-8.2) g/dL Albumin (3.9-5) g/dL Albumin/Globulin Ratio % Urine Color Yellow (Yellow) Urine Turbidity Clear (Clear) Urine pH 5.0 (5.0-7.0) Ur Specific [place] 1.025 (1.003-1.030) Urine Protein <15 mg/dl (Negative) mg/dL Urine Glucose (UA) >=500 (Negative) mg/dL Urine Ketones Neg (Negative) mg/dL Urine Blood Neg (Negative) Urine Nitrite Neg (Negative) Urine Bilirubin Neg (Negative) Urine Urobilinogen < 2.0 (<2.0) mg/dL Ur Leukocyte Esterase Neg (Negative) Urine WBC (Auto) 1.0 (0.0-6.0) /HPF Urine RBC (Auto) 3.0 (0.0-6.0) /HPF U Epithel Cells (Auto) 10.0 (0-13.0) /HPF Urine HCG, Qual Negative (Negative) - Medical Decision Making This is a 29-year-old female that presents with low back strain and noncompliance with insulin medication. Patient is stable was examined by me. There is no spinal tenderness. There is no cauda equina syndrome during examination. No bladder or bowel instability. Patient received Toradol 60 mg IM, normal saline and insulin in the ED which stated that her symptoms has resolved and subsided. Fingerstick glucose has decreased prior to discharge after treatment. Patient is discharged with muscle relaxant and naproxen. Patient was instructed not to operate any machinery while taking muscle relaxant as they cause her drowsiness. Educated to continue taking insulin as prescribed by primary care doctor. Patient was referred to Follow-up with a primary care doctor in 3-5 days or if symptoms worsen and continue return to emergency room as soon as possible. At time of discharge, the patient does not seem toxic or ill in appearance. No acute signs of distress noted. Patient agrees to discharge treatment plan of care. No further questions noted by the patient. This chart is dictated with using [employer] D[employer]ation [employer] Critical care attestation.: If time is entered above; I have spent that time in minutes in the direct care of this critically ill patient, excluding procedure time. ED Disposition Clinical Impression: Noncompliance with medication regimen Low back strain Qualifiers: Encounter type: initial encounter Qualified Code(s): S39.012A - Strain of muscle, fascia and tendon of lower back, initial encounter Diabetes mellitus Qualifiers: Diabetes mellitus type: type 2 Diabetes mellitus director long term care insulin use: with director long term care use Diabetes mellitus complication status: with other specified complication Qualified Code(s): E11.69 - Type 2 diabetes mellitus with other specified complication Disposition: DC-01 TO HOME OR SELFCARE Is pt being admited?: No Does the pt Need Aspirin: No Condition: Stable Instructions: Diabetes Mellitus Type 2 in Adults (ED), Muscle Strain (ED), C yclobenzaprine (By mouth) Additional Instructions: Follow-up with your primary care doctor in 3-5 days or if symptoms worsen such as bladder or bowel stability, chest pain, short of breath, numbness or tingling sensation in extremities, headache, dizziness, visual changes, nausea vomiting, or abdominal pain, return back to emergency room as was possible. Take Naproxen and Flexeril as prescribed. Do not operate heavy machinery while taking Flexeril due to sedation Prescriptions: Cyclobenzaprine [Flexeril] 10 mg PO QHS PRN #10 tablet PRN Reason: Muscle Spasm Naproxen 500 mg PO Q12H PRN #12 tablet PRN Reason: Pain , Severe (7-10) Referrals: PRIMARY CAREMD [Primary Care Provider] - 3-5 Days MIGUEL LAMB MD [Staff Physician] - 3-5 Days Forms: Work/School Release Form(ED)
[2019-12-09] MEDS ORDERED: INSULIN REGULAR, HUMAN 100 UNIT/ML 3ML VIAL IV ONE (10:55)
[2019-12-09] MEDS ORDERED: INSULIN REGULAR, HUMAN 100 UNITS/1 ML ONE (10:59)
[2019-12-09 15:37] LABS: BUN/Creatinine Ratio 13; Blood Urea Nitrogen 8 mg/dL (7-17)
== END 2019-12-09 12:14 | disposition home or self-care (01) ==
LOC: ED 08:34
DX: S39.012A Strain of muscle, fascia and tendon of lower back, initial encounter (principal); I10 Essential (primary) hypertension; E10.9 Type 1 diabetes mellitus without complications; Z87.891 Personal history of nicotine dependence; Z79.899 Other long term (current) drug therapy; X58.XXXA Exposure to other specified factors, initial encounter; Y93.89 Activity, other specified; Y92.89 Other specified places as the place of occurrence of the external cause; Y99.8 Other external cause status
CPT/HCPCS: 36415; 80053; 81001; 81025; 82805; 82962; 85025; 96361; 96374; 96375; 99283; J1885; J7030; J1815

== ENCOUNTER 2020-03-10 12:02 | Inpatient (IN) | payer OTHER ==
--- NOTE | 2020-03-10 13:14 | Event Note ---
ED Screening Note ED Screening Note: Patient presents for diarrhea, chest congestion, cough, shortness of breath, pain with breathing that began 3 days ago She states that she did have a sore throat but that has since resolved she has been taking NyQuil and TheraFlu She denies any nausea, vomiting, ear pain, fever Past medical history of insulin-dependent diabetic No allergies to medications She endorses tobacco and marijuana use she denies any sick contacts, recent travel, recent surgery, hormone use She states that she has been exposed to mold in her bathroom This initial assessment/diagnostic orders/clinical plan/treatment(s) is/are subject to change based on patients health status, clinical progression and re- assessment by fellow clinical providers in the ED. Further treatment and workup at subsequent clinical providers discretion. Patient/guardian urged not to elope from the ED as their condition may be serious if not clinically assessed and managed. Initial orders include: labs, CXR
[2020-03-10 13:48] LABS: Basophils % (Auto) 0.4 % (0.0-1.8); Eosinophils % (Auto) 0.3 % (0.0-4.3); Hematocrit 45.6 % (30.3-42.9); Lymphocytes # (Auto) 2.1 K/mm3 (1.2-5.4); Lymphocytes % (Auto) 37.2 % (13.4-35.0); Mean Corpuscular HGB Conc 35 % (30-34); Mean Corpuscular Volume 84 fl (79-97); Monocytes # (Auto) 0.5 K/mm3 (0.0-0.8); Monocytes % (Auto) 8.5 % (0.0-7.3); Platelet Count 189 K/mm3 (140-440); Red Blood Count 5.42 M/mm3 (3.65-5.03); Red Cell Distribution Width 13.4 % (13.2-15.2)
[2020-03-10 14:14] LABS: Alanine Aminotransferase 18 units/L (7-56); Albumin 4.3 g/dL (3.9-5); Blood Urea Nitrogen 7 mg/dL (7-17); Calcium 9.4 mg/dL (8.4-10.2); Hemolysis Index 9
[2020-03-10 14:32] LABS: BUN/Creatinine Ratio 10
--- NOTE | 2020-03-10 14:52 | XRay Report ---
CHEST 2 VIEWS INDICATION / CLINICAL INFORMATION: cough. COMPARISON: None available. FINDINGS: SUPPORT DEVICES: None. HEART / MEDIASTINUM: No significant abnormality. LUNGS / PLEURA: There are patchy bibasilar opacities. No pneumothorax. ADDITIONAL FINDINGS: No significant additional findings. IMPRESSION: 1. Patchy bibasilar opacities that could potentially indicate viral pneumonia. Signer Name: Davie Camarillo MD Signed: 03/10/2020 2:47 PM Workstation Name: [id number]
--- NOTE | 2020-03-10 15:10 | Emergency Department Report ---
ED Shortness of Breath HPI - General Chief Complaint: Upper Respiratory Infection Stated Complaint: CHEST CONGESTION Time Seen by Provider: 03/10/20 13:09 Source: patient Mode of arrival: Ambulatory Limitations: No Limitations - History of Present Illness Initial Comments: Patient is 29 years old obese female with history of type 2 diabetes on insulin. Patient presented to the ER with 3-day history of shortness of breath, cough, sore throat and congestion. Patient denied any fever or chills. Patient stated that shortness of breath increase when she started walking. Patient denied any nausea or vomiting. MD Complaint: shortness of breath, cough -: days(s) (3) Context: recent URI Treatments Prior to Arrival: none - Related Data Previous Rx's Medication Instructions Recorded Last Taken Type Insulin Aspart (Nf) [NovoLOG 100 10 units SQ BID #200 units 12/01/18 Unknown Rx UNITS/ML VIAL] Butalb/Acetamin/Caff 50-325-40 1 tab PO Q8HR PRN #10 tablet 04/06/19 Unknown Rx [Fioricet 50-325-40] Insulin NPH Hum/Reg Insulin Hm 100 unit SQ BID #1 vial 05/12/19 Unknown Rx [Novolin 70-30 100 Unit/ml Vial] Cyclobenzaprine [Flexeril] 10 mg PO QHS PRN #10 tablet 12/09/19 Unknown Rx Naproxen 500 mg PO Q12H PRN #12 tablet 12/09/19 Unknown Rx Allergies Allergy/AdvReac Type Severity Reaction Status Date / Time No Known Allergies Allergy Verified 05/12/19 05:38 ED Review of Systems ROS: Stated complaint: CHEST CONGESTION Other details as noted in HPI Comment: All other systems reviewed and negative Constitutional: denies: chills, fever Respiratory: cough. denies: orthopnea, shortness of breath, SOB with exertion, SOB at rest, wheezing Cardiovascular: denies: chest pain, palpitations, dyspnea on exertion Gastrointestinal: denies: abdominal pain, nausea, vomiting, diarrhea, constipation, hematemesis, melena, hematochezia Musculoskeletal: denies: back pain Neurological: denies: headache, weakness, numbness, paresthesias, confusion, abnormal gait ED Past Medical Hx - Past Medical History Hx Hypertension: Yes Hx Diabetes: Yes (Type 1) - Social History Smoking Status: Current Every Day Smoker - Medications Home Medications: Home Medications Medication Instructions Recorded Confirmed Last Taken Type Insulin Aspart (Nf) [NovoLOG 100 10 units SQ BID #200 units 12/01/18 03/10/20 Unknown Rx UNITS/ML VIAL] Butalb/Acetamin/Caff 50-325-40 1 tab PO Q8HR PRN #10 tablet 04/06/19 03/10/20 Unknown Rx [Fioricet 50-325-40] Insulin NPH Hum/Reg Insulin Hm 100 unit SQ BID #1 vial 05/12/19 03/10/20 Unknown Rx [Novolin 70-30 100 Unit/ml Vial] Cyclobenzaprine [Flexeril] 10 mg PO QHS PRN #10 tablet 12/09/19 03/10/20 Unknown Rx Naproxen 500 mg PO Q12H PRN #12 tablet 12/09/19 03/10/20 Unknown Rx ED Physical Exam - General Limitations: No Limitations General appearance: alert, in no apparent distress - Head Head exam: Present: atraumatic, normocephalic, normal inspection - Eye Eye exam: Present: normal appearance - ENT ENT exam: Present: normal exam, normal orophraynx, mucous membranes moist - Neck Neck exam: Present: normal inspection, full ROM. Absent: tenderness, meningismus - Respiratory Respiratory exam: Present: normal lung sounds bilaterally - Cardiovascular Cardiovascular Exam: Present: tachycardia - GI/Abdominal GI/Abdominal exam: Present: soft, normal bowel sounds. Absent: distended, tenderness, guarding, rebound, rigid, organomegaly, mass, bruit, pulsatile mass, hernia - Extremities Exam Extremities exam: Present: normal inspection, full ROM, normal capillary refill. Absent: tenderness, pedal edema, joint swelling, calf tenderness - Back Exam Back exam: Present: normal inspection, full ROM. Absent: CVA tenderness (R), CVA tenderness (L) - Neurological Exam Neurological exam: Present: alert, oriented X3, CN II-XII intact, normal gait, reflexes normal. Absent: motor sensory deficit - Psychiatric Psychiatric exam: Present: normal mood - Skin Skin exam: Present: warm, intact, normal color ED Course Vital Signs 03/10/20 03/10/20 12:29 15:25 Temperature 98.0 F Pulse Rate 121 H Respiratory 24 18 Rate Blood Pressure 125/106 O2 Sat by Pulse 99 100 Oximetry ED Medical Decision Making - Lab Data Result diagrams: 03/11/20 05:06 03/11/20 05:06 - Radiology Data Radiology results: report reviewed - Medical Decision Making Patient is 29 years old obese female with history of type 2 diabetes on insulin. Patient presented to the ER with 3-day history of shortness of breath, cough, sore throat and congestion. Patient denied any fever or chills. Patient stated that shortness of breath increase when she started walking. Patient denied any nausea or vomiting. Labs reviewed and showed a blood glucose of 340. Patient received normal saline and 5 units of regular insulin. Chest x-ray showed bilateral lower lobe infiltrates suggesting of atypical pneumonia. COVID-19 test has been ordered. Patient received Rocephin 1 g IV, Zithromax 500 mg IV and Decadron 8 mg IV. I discussed the patient with Dr. Ramírez, he agreed to admit the patient to medical service for further management. Critical care attestation.: If time is entered above; I have spent that time in minutes in the direct care o f this critically ill patient, excluding procedure time. ED Disposition Clinical Impression: Pneumonia of both lower lobes, Suspected COVID-19 virus infection, Acute hyperglycemia Disposition: OP ADMIT IP TO THIS HOSP Is pt being admited?: Yes Condition: Stable
[2020-03-10] MEDS ORDERED: dexAMETHasone 4 MG/ML VIAL IV ONE (15:14)
[2020-03-10] MEDS ORDERED: AZITHROMYCIN/NS 500 MG/250 ML 500 MG/250 ML BAG IV ONE (15:14)
[2020-03-10] MEDS ORDERED: SODIUM CHLORIDE 0.9% 1000 ML 1,000 ML IV ONE (15:14)
[2020-03-10] MEDS ORDERED: cefTRIAXone/NS 1 GM/50 ML 1 GM/50 ML BAG IV ONE (15:14)
[2020-03-10] MEDS ORDERED: INSULIN REGULAR, HUMAN 100 UNIT/ML 3ML VIAL IV ONE (15:16)
[2020-03-10] MEDS ORDERED: DEXTROSE 50% IN WATER (25GM) 50 ML SYRINGE IV PRN (16:44)
[2020-03-10] MEDS ORDERED: ACETAMINOPHEN 325 MG TAB PO PRN (16:44)
[2020-03-10] MEDS ORDERED: ONDANSETRON 4 MG/2 ML INJ IV PRN (16:44)
[2020-03-10] MEDS ORDERED: MORPHINE 2 MG/1 ML INJ IV PRN (16:44)
[2020-03-10] MEDS ORDERED: MAGNESIUM HYDROXIDE (MOM) ORAL LIQD UDC PO PRN (16:44)
--- NOTE | 2020-03-10 16:51 | History and Physical Report ---
History of Present Illness Date of examination: 03/10/20 Date of admission: 03/10/20 15:17 Chief complaint: Shortness of breath History of present illness: 29-year-old female with known history of diabetes mellitus presenting to the emergency room today complaining of shortness of breath and cough which has been ongoing for about 3 days. She has also had some sore throat and sinus congestion lately. She denies any fever or chills, no nausea vomiting, no chest pain, no headache or dizziness. Patient indicates that she gets increasingly short of breath on exertion. Patient denies any sick contacts and no recent travel. She denies any contact with anyone with COVID-19. Upon arrival in the emergency room patient was found to be tachycardic and mildly tachypneic. Work-up in the emergency room today reveals Patchy bibasilar opacities suspicious for viral pneumonia. Patient is being admitted with pneumonia to rule out COVID-19. Past History Past Medical History: diabetes Past Surgical History: No surgical history Social history: smoking (Current daily smoker) Family history: no significant family history Medications and Allergies Allergies Allergy/AdvReac Type Severity Reaction Status Date / Time No Known Allergies Allergy Verified 05/12/19 05:38 Home Medications Medication Instructions Recorded Confirmed Last Taken Type Insulin Aspart (Nf) [NovoLOG 100 10 units SQ BID #200 units 12/01/18 03/10/20 Unknown Rx UNITS/ML VIAL] Butalb/Acetamin/Caff 50-325-40 1 tab PO Q8HR PRN #10 tablet 04/06/19 03/10/20 Unknown Rx [Fioricet 50-325-40] Insulin NPH Hum/Reg Insulin Hm 100 unit SQ BID #1 vial 05/12/19 03/10/20 Unknown Rx [Novolin 70-30 100 Unit/ml Vial] Cyclobenzaprine [Flexeril] 10 mg PO QHS PRN #10 tablet 12/09/19 03/10/20 Unknown Rx Naproxen 500 mg PO Q12H PRN #12 tablet 12/09/19 03/10/20 Unknown Rx Active Meds: Active Medications Acetaminophen (Acetaminophen 325 Mg Tab) 650 mg PO Q4H PRN PRN Reason: Pain MILD(1-3)/Fever >100.5/DANG Dextrose (Dextrose 50% In Water (25gm) 50 Ml Syringe) 50 ml IV Q30MIN PRN; Protocol PRN Reason: Hypoglycemia Enoxaparin Sodium (Enoxaparin 40 Mg/0.4 Ml Inj) 40 mg SUB-Q QDAY@2200 [facility]; Protocol Ceftriaxone Sodium (Rocephin/Ns 2 Gm/100 Ml) 2 gm in 100 mls @ 200 mls/hr IV Q24H [facility]; Protocol Azithromycin 500 mg/ Sodium (Chloride) 250 mls @ 250 mls/hr IV Q24H [facility]; Protocol Insulin Human Lispro (Insulin Lispro 100 Unit/Ml Vial 3 Ml) 0 unit SUB-Q ACHS [facility]; Protocol Magnesium Hydroxide (Magnesium Hydroxide (Mom) Oral Liqd Udc) 30 ml PO Q4H PRN PRN Reason: Constipation Morphine Sulfate (Morphine 2 Mg/1 Ml Inj) 2 mg IV Q4H PRN PRN Reason: Pain, Moderate (4-6) Ondansetron HCl (Ondansetron 4 Mg/2 Ml Inj) 4 mg IV Q8H PRN PRN Reason: Nausea And Vomiting Sodium Chloride (Sodium Chloride 0.9% 10 Ml Flush Syringe) 10 ml IV BID [facility] Sodium Chloride (Sodium Chloride 0.9% 10 Ml Flush Syringe) 10 ml IV PRN PRN PRN Reason: LINE FLUSH Review of Systems Constitutional: fever, fatigue, no chills Ears, nose, mouth and throat: nasal congestion, sore throat Cardiovascular: no chest pain, no palpitations Respiratory: cough, shortness of breath Gastrointestinal: no abdominal pain, no nausea, no vomiting, no diarrhea Genitourinary Female: no pelvic pain, no flank pain, no hematuria Musculoskeletal: no neck pain, no low back pain Integumentary: no rash, no pruritis Neurological: no headaches, no confusion Psychiatric: no anxiety, no depression Exam - Constitutional Vitals: Temp Pulse Resp BP Pulse Ox 98.0 F 121 H 18 125/106 100 03/10/20 12:29 03/10/20 12:29 03/10/20 15:25 03/10/20 12:29 03/10/20 15:25 General appearance: Present: no acute distress, well-nourished, obese - EENT Eyes: Present: PERRL, EOM intact. Absent: scleral icterus ENT: hearing intact, clear oral mucosa, dentition normal - Neck Neck: Present: supple, normal ROM - Respiratory Respiratory effort: normal Respiratory: bilateral: diminished - Cardiovascular Rhythm: regular Heart Sounds: Present: S1 & S2. Absent: gallop, systolic murmur, diastolic murmur, rub - Extremities Extremities: no ischemia, pulses intact, pulses symmetrical, No edema, Full ROM Peripheral Pulses: within normal limits - Abdominal General gastrointestinal: Present: soft, non-tender, non-distended, normal bowel sounds. Absent: mass - Integumentary Integumentary: Present: clear, warm, dry - Musculoskeletal Musculoskeletal: strength equal bilaterally - Psychiatric Psychiatric: appropriate mood/affect, intact judgment & insight, memory intact, cooperative - Neurologic Neurologic: CNII-XII intact, no focal deficits, moves all extremities Results - Labs CBC & Chem 7: 03/10/20 13:31 03/10/20 13:31 Labs: Abnormal lab results 03/10/20 03/10/20 Range/Units 13:31 13:31 RBC 5.42 H (3.65-5.03) M/mm3 Hgb 16.0 H (10.1-14.3) gm/dl Hct 45.6 H (30.3-42.9) % MCHC 35 H (30-34) % Lymph % (Auto) 37.2 H (13.4-35.0) % [place] % (Auto) 8.5 H (0.0-7.3) % Sodium 136 L (137-145) mmol/L Glucose 346 H (65-100) mg/dL Assessment and Plan - Patient Problems (1) Pneumonia of both lower lobes Current Visit: Yes Status: Acute Plan to address problem: Patient has been started on antibiotics. We await culture results. (2) Acute hyperglycemia Current Visit: Yes Status: Acute Plan to address problem: Patient placed on sliding scale. Will monitor Accu-Cheks closely. (3) Suspected COVID-19 virus infection Current Visit: Yes Status: Acute Plan to address problem: Patient placed on isolation precautions. We await COVID-19 testing. Consult placed to infectious disease for evaluation and recommendation. (4) DVT prophylaxis Current Visit: Yes Status: Acute Plan to address problem: Patient placed on subcutaneous Lovenox. (5) Full code status Current Visit: Yes Status: Acute Plan to address problem: Patient is full code.
[2020-03-10] MEDS ORDERED: cefTRIAXone/NS 2 GM/100 ML 2 GM/100 ML BAG IV SCH (17:00)
[2020-03-10] MEDS ORDERED: AZITHROMYCIN 500 MG in SODIUM CHLORIDE 0.9% 250ML 250 ML IV SCH (17:00)
[2020-03-10] MEDS ORDERED: AZITHROMYCIN/NS 500 MG/250 ML 500 MG/250 ML BAG IV SCH (18:00)
[2020-03-10] MEDS: INSULIN LISPRO 100 UNIT/ML VIAL 3 mL SUB-Q SCH (22:34)
[2020-03-10] MEDS: ENOXAPARIN 40 MG/0.4 ML INJ SUB-Q SCH (22:34)
[2020-03-11 06:15] LABS: Hematocrit 46.1 % (30.3-42.9); Hemoglobin 15.5 gm/dl (10.1-14.3); Mean Corpuscular HGB Conc 34 % (30-34); Mean Corpuscular Volume 85 fl (79-97); Red Blood Count 5.41 M/mm3 (3.65-5.03); Red Cell Distribution Width 13.2 % (13.2-15.2)
[2020-03-11 06:17] LABS: Lymphocytes % (Auto) 34.6 % (13.4-35.0); Monocytes % (Auto) 7.8 % (0.0-7.3); Platelet Count 160 K/mm3 (140-440)
[2020-03-11 06:18] LABS: Basophils % (Auto) 0.3 % (0.0-1.8); Lymphocytes # (Auto) 2.1 K/mm3 (1.2-5.4); Monocytes # (Auto) 0.5 K/mm3 (0.0-0.8)
[2020-03-11 06:22] LABS: INR 0.96 (0.87-1.13)
[2020-03-11 06:30] LABS: Blood Urea Nitrogen 8 mg/dL (7-17); Calcium 8.9 mg/dL (8.4-10.2); Hemolysis Index 52
[2020-03-11 06:31] LABS: BUN/Creatinine Ratio 13
[2020-03-11] MEDS ORDERED: hydrALAZINE 20 MG/1 ML INJ IV PRN (08:26)
[2020-03-11] MEDS: INSULIN LISPRO 100 UNIT/ML VIAL 3 mL SUB-Q SCH ×4 (08:54→22:30)
[2020-03-11 10:02] LABS: C-Reactive Protein 1.1 mg/dL (0.00-1.30)
[2020-03-11] MEDS: dexAMETHasone 4 MG/ML VIAL IV SCH (11:32)
[2020-03-11] MEDS: amLODIPine 5 MG TAB PO SCH (11:39)
--- NOTE | 2020-03-11 14:50 | Consultation ---
History of Present Illness - Reason for Consult Consult date: 03/11/20 - History of Present Illness 29-year-old female past medical history morbid obesity, diabetes presented to hospital complaining of shortness of breath and cough. This began approximately 3 days prior to admission and associated with sore throat. She denies any fevers or chills. She denies any known contact with COVID-19 patients. Afebrile since admission with a normal white count. Normal renal function and normal procalcitonin. Covid testing pending. No cultures were reviewed. Currently on ceftriaxone and azithromycin. Not hypoxic. Imaging personally reviewed: Chest x-ray: Patchy bibasilar opacities Review of systems: Deferred due to PPE conservation strategy. Past History Past Medical History: diabetes Past Surgical History: No surgical history Social history: smoking (Current daily smoker) Family history: no significant family history Medications and Allergies Allergies Allergy/AdvReac Type Severity Reaction Status Date / Time No Known Allergies Allergy Verified 05/12/19 05:38 Home Medications Medication Instructions Recorded Confirmed Last Taken Type Insulin Aspart (Nf) [NovoLOG 100 10 units SQ BID #200 units 12/01/18 03/10/20 Unknown Rx UNITS/ML VIAL] Butalb/Acetamin/Caff 50-325-40 1 tab PO Q8HR PRN #10 tablet 04/06/19 03/10/20 Unknown Rx [Fioricet 50-325-40] Insulin NPH Hum/Reg Insulin Hm 100 unit SQ BID #1 vial 05/12/19 03/10/20 Unknown Rx [Novolin 70-30 100 Unit/ml Vial] Cyclobenzaprine [Flexeril] 10 mg PO QHS PRN #10 tablet 12/09/19 03/10/20 Unknown Rx Naproxen 500 mg PO Q12H PRN #12 tablet 12/09/19 03/10/20 Unknown Rx Active Meds: Active Medications Acetaminophen (Acetaminophen 325 Mg Tab) 650 mg PO Q4H PRN PRN Reason: Pain MILD(1-3)/Fever >100.5/DANG Amlodipine Besylate (Amlodipine 5 Mg Tab) 2.5 mg PO QDAY [facility] Last Admin: 03/11/20 11:39 Dose: 2.5 mg Documented by: Azithromycin (Azithromycin 250 Mg Tab) 500 mg PO QHS [facility] Stop: 03/14/20 22:01 Dexamethasone (Dexamethasone 4 Mg/Ml Vial) 6 mg IV Q24HR [facility] Stop: 03/19/20 10:01 Last Admin: 03/11/20 11:32 Dose: 6 mg Documented by: Dextrose (Dextrose 50% In Water (25gm) 50 Ml Syringe) 50 ml IV Q30MIN PRN; Protocol PRN Reason: Hypoglycemia Enoxaparin Sodium (Enoxaparin 40 Mg/0.4 Ml Inj) 40 mg SUB-Q QDAY@2200 [facility]; Protocol Last Admin: 03/10/20 22:34 Dose: 40 mg Documented by: Hydralazine HCl (Hydralazine 20 Mg/1 Ml Inj) 10 mg IV Q4HR PRN PRN Reason: Hypertension Ceftriaxone Sodium (Rocephin/Ns 2 Gm/100 Ml) 2 gm in 100 mls @ 200 mls/hr IV Q24H [facility]; Protocol Last Admin: 03/10/20 22:33 Dose: Not Given Documented by: Insulin Human Lispro (Insulin Lispro 100 Unit/Ml Vial 3 Ml) 0 unit SUB-Q ACHS [facility]; Protocol Last Admin: 03/11/20 11:43 Dose: 4 unit Documented by: Magnesium Hydroxide (Magnesium Hydroxide (Mom) Oral Liqd Udc) 30 ml PO Q4H PRN PRN Reason: Constipation Morphine Sulfate (Morphine 2 Mg/1 Ml Inj) 2 mg IV Q4H PRN PRN Reason: Pain, Moderate (4-6) Ondansetron HCl (Ondansetron 4 Mg/2 Ml Inj) 4 mg IV Q8H PRN PRN Reason: Nausea And Vomiting Sodium Chloride (Sodium Chloride 0.9% 10 Ml Flush Syringe) 10 ml IV BID [facility] Last Admin: 03/11/20 11:33 Dose: 10 ml Documented by: Sodium Chloride (Sodium Chloride 0.9% 10 Ml Flush Syringe) 10 ml IV PRN PRN PRN Reason: LINE FLUSH Physical Examination - Physical Exam Narrative exam: Physical exam deferred due to PPE conservation strategy. Please refer to primary team's note. - Constitutional Vitals: Vital Signs Temp Pulse Resp BP Pulse Ox 97.5 F L 95 H 20 152/97 99 03/11/20 11:17 03/11/20 11:39 03/11/20 11:17 03/11/20 11:39 03/11/20 11:17 Temperature -Last 24 Hours Temperature 97.5 F Temperature 97.5 F Temperature 98.5 F Temperature 98.2 F Results - Labs CBC & Chem 7: 03/11/20 05:06 03/11/20 05:06 Labs: Abnormal lab results 03/10/20 03/11/20 03/11/20 Range/Units 20:51 05:06 05:06 RBC 5.41 H (3.65-5.03) M/mm3 Hgb 15.5 H (10.1-14.3) gm/dl Hct 46.1 H (30.3-42.9) % [place] % (Auto) 7.8 H (0.0-7.3) % D-Dimer (0-234) ng/mlDDU Carbon Dioxide 19 L (22-30) mmol/L Glucose 290 H (65-100) mg/dL POC Glucose 408 H (70-105) mg/dL Lactate Dehydrogenase (91-180) units/L 03/11/20 03/11/20 03/11/20 Range/Units 08:06 09:08 09:08 RBC (3.65-5.03) M/mm3 Hgb (10.1-14.3) gm/dl Hct (30.3-42.9) % [place] % (Auto) (0.0-7.3) % D-Dimer 273.08 H (0-234) ng/mlDDU Carbon Dioxide (22-30) mmol/L Glucose (65-100) mg/dL POC Glucose 255 H (70-105) mg/dL Lactate Dehydrogenase 209 H (91-180) units/L 03/11/20 Range/Units 11:16 RBC (3.65-5.03) M/mm3 Hgb (10.1-14.3) gm/dl Hct (30.3-42.9) % [place] % (Auto) (0.0-7.3) % D-Dimer (0-234) ng/mlDDU Carbon Dioxide (22-30) mmol/L Glucose (65-100) mg/dL POC Glucose 292 H (70-105) mg/dL Lactate Dehydrogenase (91-180) units/L Assessment and Plan Cultures: Covid pending A/P: 29-year-old female past medical history morbid obesity, diabetes admitted as Covid PUI #Bilateral pneumonia: Covid PUI. Follow-up Covid testing. Does not appear to be hypoxic at present. Normal procalcitonin #Diabetes: tight glycemic control for best outcomes. #Morbid obesity: Associated with worse COVID-19 outcomes Recs: -Follow-up Covid testing -Stop antibiotics due to normal procalcitonin. -Patient not currently hypoxic, as such would not start remdesivir Covid positive. -Anticoagulation per hospital protocol Thank you for the consult, we will continue to follow. Florencio Manriquez MD [facility], [place] [facility] O: [phone] F: [phone]
--- NOTE | 2020-03-11 14:56 | Progress Note ---
Assessment and Plan Assessment and plan: COVID-19 PUI -03/10 CXR shows patchy bibasilar opacities could potentially indicate viral pneumonia -03/11 COVID-19 PCR pending -Infectious disease consulted, appreciate recommendation -Empiric antibiotics -Contact/droplet precautions -Steroid therapy -OOB 3 times daily -Pulmonary hygiene -Supplemental oxygen as needed -SPO2 monitoring -Trend inflammatory markers for risk stratification -Prone to sleep -Anticoagulation per protocol Acute hypoxic respiratory distress -Pulmonary hygiene -SPO2 monitoring -Supplemental oxygen as needed Acute hyperglycemia in setting of diabetes mellitus type 2 -Presented with a blood sugar of 346 -03/11 hemoglobin A1c pending -SSI -Accu-Cheks AC at bedtime -CC diet -Restarted home insulin regimen of Novolin 70/30 Hyponatremia -Presented with a sodium of 136 -Corrected sodium-- -pseudohyponatremia Hypertension -Per patient she has a history of hypertension but is not on any medication -03/11 initiated on Norvasc, titrate as needed -Blood pressure monitoring per protocol -Hydralazine IV as needed for systolic blood pressure greater than 160 Metabolic acidosis -03/11 CO2 19 -Trend BMP DVT prophylaxis -Subcontinuous Lovenox -SCDs to bilateral lower extremities while in bed History Interval history: This is a 29-year-old female with IDDM, current tobacco abuse and hypertension who presented to the emergency department on 03/10 for shortness of breath, sore throat, sinus congestion and cough for 3 days prior to presentation. On arrival to the emergency room she was found to be tachycardic and mildly tachypneic and her CXR showed patchy bibasilar opacities suspicious for viral pneumonia. She was admitted to the hospital service as a COVID-19 PUI and infectious disease was consulted. Today she reviewed on examination patient remains on room air and states that she feels much better. However she still complains of shortness of breath with ambulation and slight cough. Infectious disease has stopped her antibiotic therapy given normal procalcitonin level. Hospitalist Physical - Constitutional Vitals: Temp Pulse Resp BP Pulse Ox 97.5 F L 95 H 20 152/97 99 03/11/20 11:17 03/11/20 11:39 03/11/20 11:17 03/11/20 11:39 03/11/20 11:17 General appearance: Present: no acute distress, well-nourished, obese - EENT Eyes: Present: PERRL, EOM intact ENT: hearing intact, clear oral mucosa, dentition normal - Neck Neck: Present: normal ROM - Respiratory Respiratory effort: normal - Cardiovascular Rhythm: regular - Extremities Extremities: no ischemia, pulses intact, pulses symmetrical, No edema, normal temperature, normal color, Full ROM Peripheral Pulses: within normal limits - Abdominal General gastrointestinal: soft, non-tender, non-distended, normal bowel sounds - Integumentary Integumentary: Present: clear, warm, dry - Psychiatric Psychiatric: appropriate mood/affect, cooperative - Neurologic Neurologic: CNII-XII intact, no focal deficits, moves all extremities - Allied Health Allied health notes reviewed: nursing Results - Labs CBC & Chem 7: 03/11/20 05:06 03/11/20 05:06 Labs: Laboratory Last Values WBC 6.2 K/mm3 (4.5-11.0) 03/11/20 05:06 RBC 5.41 M/mm3 (3.65-5.03) H 03/11/20 05:06 Hgb 15.5 gm/dl (10.1-14.3) H 03/11/20 05:06 Hct 46.1 % (30.3-42.9) H 03/11/20 05:06 MCV 85 fl (79-97) 03/11/20 05:06 MCH 29 pg (28-32) 03/11/20 05:06 MCHC 34 % (30-34) 03/11/20 05:06 RDW 13.2 % (13.2-15.2) 03/11/20 05:06 Plt Count 160 K/mm3 (140-440) 03/11/20 05:06 Lymph % (Auto) 34.6 % (13.4-35.0) 03/11/20 05:06 [place] % (Auto) 7.8 % (0.0-7.3) H 03/11/20 05:06 Eos % (Auto) 0.0 % (0.0-4.3) 03/11/20 05:06 Baso % (Auto) 0.3 % (0.0-1.8) 03/11/20 05:06 Lymph # (Auto) 2.1 K/mm3 (1.2-5.4) 03/11/20 05:06 [place] # (Auto) 0.5 K/mm3 (0.0-0.8) 03/11/20 05:06 Eos # (Auto) 0.0 K/mm3 (0.0-0.4) 03/11/20 05:06 Baso # (Auto) 0.0 K/mm3 (0.0-0.1) 03/11/20 05:06 Seg Neutrophils % 57.3 % (40.0-70.0) 03/11/20 05:06 Seg Neutrophils # 3.5 K/mm3 (1.8-7.7) 03/11/20 05:06 PT 12.7 Sec. (12.2-14.9) 03/11/20 05:06 INR 0.96 (0.87-1.13) 03/11/20 05:06 D-Dimer 273.08 ng/mlDDU (0-234) H 03/11/20 09:08 Sodium 139 mmol/L (137-145) 03/11/20 05:06 Potassium 4.9 mmol/L (3.6-5.0) D 03/11/20 05:06 Chloride 103.5 mmol/L (98-107) 03/11/20 05:06 Carbon Dioxide 19 mmol/L (22-30) L 03/11/20 05:06 Anion Gap 21 mmol/L 03/11/20 05:06 BUN 8 mg/dL (7-17) 03/11/20 05:06 Creatinine 0.6 mg/dL (0.6-1.2) 03/11/20 05:06 Estimated GFR > 60 ml/min 03/11/20 05:06 BUN/Creatinine Ratio 13 % 03/11/20 05:06 Glucose 290 mg/dL (65-100) H 03/11/20 05:06 POC Glucose 292 mg/dL (70-105) H 03/11/20 11:16 Calcium 8.9 mg/dL (8.4-10.2) 03/11/20 05:06 Ferritin 100.0 ng/mL (10.0-200.0) 03/11/20 09:08 Total Bilirubin 0.50 mg/dL (0.1-1.2) 03/10/20 13:31 AST 17 units/L (5-40) 03/10/20 13:31 ALT 18 units/L (7-56) 03/10/20 13:31 Alkaline Phosphatase 69 units/L (35-129) 03/10/20 13:31 Lactate Dehydrogenase 209 units/L (91-180) H 03/11/20 09:08 C-Reactive Protein 1.10 mg/dL (0.00-1.30) 03/11/20 09:08 Total Protein 8.0 g/dL (6.3-8.2) 03/10/20 13:31 Albumin 4.3 g/dL (3.9-5) 03/10/20 13:31 Albumin/Globulin Ratio 1.2 % 03/10/20 13:31 Procalcitonin < 0.05 ng/mL (<0.15) 03/11/20 09:08 HCG, Qual Negative (Negative) 03/10/20 13:31 Monte[place]/IV: Voiding Method Toilet IV Catheter Type [Left INT / Saline Lock Antecubital] Active Medications - Current Medications Current Medications: Generic Name Dose Route Start Last Admin Trade Name Freq PRN Reason Stop Dose Admin Acetaminophen 650 mg 03/10/20 16:44 Acetaminophen 325 Mg Tab PO Q4H PRN Pain MILD(1-3)/Fever >100.5/DANG Amlodipine Besylate 2.5 mg 03/11/20 12:00 03/11/20 11:39 Amlodipine 5 Mg Tab PO 2.5 mg QDAY ARMANI Administration Dexamethasone 6 mg 03/11/20 10:00 03/11/20 11:32 Dexamethasone 4 Mg/Ml Vial IV 03/19/20 10:01 6 mg Q24HR ARMANI Administration Dextrose 50 ml 03/10/20 16:44 Dextrose 50% In Water (25gm) 50 Ml Syringe IV Q30MIN PRN Hypoglycemia Protocol Enoxaparin Sodium 40 mg 03/10/20 22:00 03/10/20 22:34 Enoxaparin 40 Mg/0.4 Ml Inj SUB-Q 40 mg QDAY@2200 ARMANI Administration Protocol Hydralazine HCl 10 mg 03/11/20 08:26 Hydralazine 20 Mg/1 Ml Inj IV Q4HR PRN Hypertension Insulin Human Isoph/Insulin Regular 30 unit 03/12/20 08:00 Insulin Nph/Regular 70/30 Inj SUB-Q QAMDIAB [facility] Insulin Human Isoph/Insulin Regular 10 unit 03/11/20 17:00 Insulin Nph/Regular 70/30 Inj SUB-Q QPMDIAB [facility] Insulin Human Lispro 0 unit 03/10/20 22:00 03/11/20 11:43 Insulin Lispro 100 Unit/Ml Vial 3 Ml SUB-Q 4 unit ACHS ARMANI Administration Protocol Magnesium Hydroxide 30 ml 03/10/20 16:44 Magnesium Hydroxide (Mom) Oral Liqd Udc PO Q4H PRN Constipation Morphine Sulfate 2 mg 03/10/20 16:44 Morphine 2 Mg/1 Ml Inj IV Q4H PRN Pain, Moderate (4-6) Ondansetron HCl 4 mg 03/10/20 16:44 Ondansetron 4 Mg/2 Ml Inj IV Q8H PRN Nausea And Vomiting Sodium Chloride 10 ml 03/10/20 22:00 03/11/20 11:33 Sodium Chloride 0.9% 10 Ml Flush Syringe IV 10 ml BID ARMANI Administration Sodium Chloride 10 ml 03/10/20 16:44 Sodium Chloride 0.9% 10 Ml Flush Syringe IV PRN PRN LINE FLUSH Nutrition/Malnutrition Assess - Dietary Evaluation Nutrition/Malnutrition Findings: Nutrition Notes Start: 03/11/20 12:39 Freq: Status: Active Protocol: Document 03/11/20 12:39 AB (Rec: 03/11/20 12:48 AB [id number]) Co-Sign 03/11/20 12:39 MK Nutrition Notes Need for Assessment generated from: MD Order,Education Initial or Follow up Assessment Current Diagnosis Diabetes Other Pertinent Diagnosis pneumonia, r/o COVID-19 Current Diet Consistent Carb Labs/Tests BG 346 upon admission Pertinent Medications Humalog Usual Body Weight 136.4 kg [place] Body Weight (kg) 0 Subjective/Other Information MD consult for diet education. Pt states that [employer] her appetite was poor for 3-4 days and she was experiencing diarrhea. She stated that she no longer has diarrhea and has gotten her appetite back. Pt ate 75% of breakfast and is eating lunch. #1 Nutrition Diagnosis Food and nutrition-related knowledge deficit Etiology No prior diet education As Evidenced by Signs and Symptoms Pt stated eating ice cream for a snack every day and not following DM diet Nutrition Intervention Teaching Recipient Patient Learning Readiness Good Teaching Methods Discussion,Handout Response to Teaching Verbalize understanding Education Handouts Provided Carb counting Barriers to Learning No Barriers RD phone number provided Yes Patient aware of follow up options Yes Revisit per MD consult or patient Sign Off request:
[2020-03-11] MEDS: INSULIN NPH/REGULAR 70/30 INJ SUB-Q SCH (17:55)
[2020-03-11] MEDS ORDERED: AZITHROMYCIN 250 MG TAB PO SCH (22:00)
[2020-03-11] MEDS: ENOXAPARIN 40 MG/0.4 ML INJ SUB-Q SCH (22:30)
[2020-03-12] MEDS ORDERED: INSULIN NPH/REGULAR 70/30 INJ SUB-Q SCH (08:00)
[2020-03-12] MEDS: INSULIN LISPRO 100 UNIT/ML VIAL 3 mL SUB-Q SCH ×3 (08:31→17:44)
[2020-03-12] MEDS: dexAMETHasone 4 MG/ML VIAL IV SCH (09:42)
[2020-03-12] MEDS: amLODIPine 5 MG TAB PO SCH (09:43)
--- NOTE | 2020-03-12 12:10 | Progress Note ---
Assessment and Plan Cultures: Covid positive A/P: 29-year-old female past medical history morbid obesity, diabetes admitted as Covid PUI #Bilateral pneumonia/Covid: Normal inflammatory markers. Normal procalcitonin. Bibasilar pulmonary opacities on chest x-ray. #Diabetes: tight glycemic control for best outcomes. #Morbid obesity: Associated with worse COVID-19 outcomes Recs: -Stop antibiotics due to normal procalcitonin. -Dexamethasone 6 mg every 24 hours to complete 10 days. -No hypoxia noted, as such would not start remdesivir -Anticoagulation per hospital protocol -Proning as able -Consider section walk test prior to discharge. Thank you for the consult, we will sign off. Please call if respiratory status changes or any other infectious disease concerns arise. Florencio Manriquez MD [facility] ([facility] O: [phone] F: [phone] Subjective Date of service: 03/12/20 Interval history: Afebrile, no other acute changes. Covid positive. Objective - Exam Narrative Exam: Physical exam deferred due to PPE conservation strategy. Please refer to primary team's note. - Constitutional Vitals: Vital Signs Temp Pulse Resp BP Pulse Ox 98.4 F 103 H 20 148/99 98 03/12/20 04:25 03/12/20 04:25 03/12/20 11:29 03/12/20 04:25 03/12/20 11:29 Temperature -Last 24 Hours Temperature 98.4 F Temperature 98.0 F Temperature 97.7 F - Labs CBC & Chem 7: 03/11/20 05:06 03/11/20 05:06 Labs: Abnormal lab results 03/11/20 03/11/20 03/11/20 Range/Units 05:06 16:30 22:15 POC Glucose 340 H 333 H (70-105) mg/dL Hemoglobin A1c 11.3 H (4-6) % Coronavirus (PCR) (Negative) 03/11/20 03/12/20 03/12/20 Range/Units Unknown 07:54 11:23 POC Glucose 262 H 269 H (70-105) mg/dL Hemoglobin A1c (4-6) % Coronavirus (PCR) Positive A (Negative)
--- NOTE | 2020-03-12 16:40 | Discharge Summary ---
Providers - Providers Date of Admission: 03/10/20 15:17 Attending physician: BRYANT CASTELLON 03/10/20 16:44 Consult to Dietitian/Nutrition [CONS] Routine Physician Instructions: Reason For Exam: Reason for Consult: Diet education Consult to Physician [CONS] Routine Comment: Consulting Provider: RICHARD CHURCHILL Physician Instructions: Reason For Exam: Pneumonia R/O COVID-19 Primary care physician: OUTSOLE CASER Hospitalization Condition: Stable Hospital course: This is a 29-year-old female with IDDM, current tobacco abuse and hypertension who presented to the emergency department on 03/10 for shortness of breath, sore throat, sinus congestion and cough for 3 days prior to presentation. On arrival to the emergency room she was found to be tachycardic and mildly tachypneic and her CXR showed patchy bibasilar opacities suspicious for viral pneumonia. She was admitted to the hospital service as a COVID-19 PUI and infectious disease was consulted. COVID-19 PCR resulted as positive. Given low procalcitonin level infectious disease discontinued her antibiotic therapy. Patient did not develop hypoxia requiring supplemental oxygenation therefore she was not given remdesivir therapy. Patient had an ambulatory SPO2 today which did not qualify her for home oxygen. Patient will be discharged with steroid therapy to complete her 10-day course. Patient will need to follow-up with her primary care physician within 1 to 2 weeks of discharge. Patient Problems Assessment and Plan COVID-19 PUI -03/10 CXR shows patchy bibasilar opacities could potentially indicate viral pneumonia -03/11 COVID-19 PCR POSTIVE -Infectious disease consulted, appreciate recommendation -Empiric antibiotics which were stopped due to normal procalcitonin level -Continue self-isolation -Continue steroid therapy for total of 10 days -Continue pulmonary hygiene -Prone to sleep as needed Acute hypoxic respiratory distress, resolved -Pulmonary hygiene Acute hyperglycemia in setting of diabetes mellitus type 2 -Presented with a blood sugar of 346 -03/11 hemoglobin A1c 11.3 -Continue home antidiabetic regimen -Follow-up with your primary care physician within 1 to 2 weeks of discharge as you will need tighter glycemic control -Blood sugar monitoring per primary care physician instructions Hyponatremia -Presented with a sodium of 136 -Corrected sodium 140 -Pseudohyponatremia Hypertension -Per patient she has a history of hypertension but is not on any medication -03/11 initiated on Norvasc which you will need to continue upon discharge -Blood pressure monitoring per primary care physician instructions -Follow-up with primary care physician within 1 to 2 weeks of discharge Metabolic acidosis -03/11 CO2 19 -Follow-up with your primary care physician within 1 to 2 weeks of discharge Disposition: DC-01 TO HOME OR SELFCARE Time spent for discharge: 35 Core Measure Documentation - Palliative Care Palliative Care/ Comfort Measures: Not Applicable - Core Measures Any of the following diagnoses?: none Exam - Constitutional Vitals: Temp Pulse Resp BP Pulse Ox 98.0 F 109 H 20 121/81 98 03/12/20 11:24 03/12/20 11:24 03/12/20 11:29 03/12/20 11:24 03/12/20 11:29 General appearance: Present: no acute distress - EENT Eyes: Present: PERRL, EOM intact ENT: hearing intact, clear oral mucosa, dentition normal - Neck Neck: Present: normal ROM - Respiratory Respiratory effort: normal - Cardiovascular Rhythm: regular - Extremities Extremities: no ischemia, pulses intact, pulses symmetrical, No edema, normal temperature, normal color, Full ROM Peripheral Pulses: within normal limits - Abdominal General gastrointestinal: Present: soft, non-tender, non-distended, normal bowel sounds - Integumentary Integumentary: Present: clear, warm, dry - Musculoskeletal Musculoskeletal: strength equal bilaterally - Psychiatric Psychiatric: cooperative - Neurologic Neurologic: CNII-XII intact, no focal deficits, moves all extremities - Allied Health Allied health notes reviewed: nursing Plan Activity: advance as tolerated Diet: low fat, low cholesterol, low salt, diabetic Special Instructions: record daily BP diary, record blood sugar diary Additional Instructions: Present to nearest emergency department of contact primary care physician if you experience worsening symptoms. You will need to follow-up with your primary care physician within 1 to 2 weeks of discharge. You will be discharged with steroid therapy to complete your 10-day course. Follow the COVID-19 guidelines set forth by the CDC and contained in the booklet that the RN will provide you. Follow up with: PRIMARY CARE, [Primary Care Provider] - 3-5 Days Prescriptions: amLODIPine 2.5 mg PO QDAY #30 tablet
[2020-03-12] MEDS: INSULIN NPH/REGULAR 70/30 INJ SUB-Q SCH (17:44)
[2020-03-12 19:04] VITALS: BP 135/97
== END 2020-03-12 18:00 | disposition home or self-care (01) | DRG 177 ==
LOC: ED 12:02 → 3A 15:17
PROVIDERS: ADMIT Internal Medicine Geriatric Medicine; ATTEND Internal Medicine
DX: U07.1 COVID-19 (principal); J12.82 Pneumonia due to coronavirus disease 2019; E87.1 Hypo-osmolality and hyponatremia; E87.2 Acidosis; E11.65 Type 2 diabetes mellitus with hyperglycemia; F17.200 Nicotine dependence, unspecified, uncomplicated; I10 Essential (primary) hypertension; R06.03 Acute respiratory distress; E66.01 Morbid (severe) obesity due to excess calories; Z68.42 Body mass index [BMI] 45.0-49.9, adult; Z79.4 Long term (current) use of insulin; Z79.899 Other long term (current) drug therapy
CPT/HCPCS: 36415; 71046; 80048; 80053; 82728; 82962; 83036; 83615; 84145; 84703; 85025; 85379; 85610; 86140; 96365; 96366; 96367; 96375; 96376; G0378; J0360; J0456; J0696; J1100; J1650; J1815; J7030; U0003

== ENCOUNTER 2020-05-31 23:10 | Emergency (ER) | payer SELFPAY ==
--- NOTE | 2020-06-01 00:49 | Emergency Department Report ---
Stated Complaint: BACK PAINS Time Seen by Provider: 06/01/20 00:46 - HPI History of Present Illness: 29 yo female with hx of back pain presents with mild back pain, achy. Improves with Naprosyn. NO bowel/bladder incontinence. Normal gait. Recommended OTC Naprosyn. Referred to PCP. Neurovascularly intact MSE screening note: Focused history and physical exam performed. Due to findings the following was ordered: ED Disposition for MSE Clinical Impression: Back pain Disposition: MED SCREENING EXAM-LEFT Is pt being admited?: No Does the pt Need Aspirin: No Condition: Stable Instructions: Chronic Back Pain, [id number] Referrals: MIGUEL LAMB MD [Staff Physician] - 3-5 Days
[2020-06-01 01:03] VITALS: BP 152/111
== END 2020-06-01 01:10 | disposition left against medical advice (07) ==
LOC: ED 23:10
DX: M54.9 Dorsalgia, unspecified (principal); Z53.21 Procedure and treatment not carried out due to patient leaving prior to being seen by health care provider

== ENCOUNTER 2020-09-15 08:24 | Emergency (ER) | payer OTHER ==
[2020-09-15 08:31] VITALS: BP 129/88
--- NOTE | 2020-09-15 09:15 | Emergency Department Report ---
Abscess Boil HPI - HPI Chief Complaint: Wound/Laceration Stated Complaint: RIGHT INDEX FINGER INJURY Time Seen by Provider: 09/15/20 08:39 Duration: 5 Days Location: Upper Extremity Severity: Mild History: Yes Pain, Yes Purulent Drainage, No Fever, No Numbness, No Foreign Body, No Previous History, No Insect Bite HPI: 29 YO COMES IN WITH R INDEX FINGER PAIN. SHE STATES SHE CUT IT WORK LAST WEEK, IT SWELLED AND BECAME MORE PAINFUL. SHE POINTS TO PARONYCHIA ON THE SIDE OF THE NAIL BED. NEUROVASC INTACT. SHE DID NOT CRUSH FINGER- SHE CUT IT - CUT HAS HEALED, NOT VISIBLE AT THIS TIME. NO FEVER OR CHILLS. DENIES OTHER INJURY OR COMPLAINT. Home Medications: Previous Rx's Medication Instructions Recorded Last Taken Type Insulin Aspart (Nf) [NovoLOG 100 10 units SQ BID #200 units 12/01/18 Unknown Rx UNITS/ML VIAL] Insulin NPH Hum/Reg Insulin Hm 100 unit SQ BID #1 vial 05/12/19 Unknown Rx [Novolin 70-30 100 Unit/ml Vial] amLODIPine 2.5 mg PO QDAY #30 tablet 03/12/20 Unknown Rx cephALEXin [Keflex] 500 mg PO Q12HR #20 cap 09/15/20 Unknown Rx Allergies/Adverse Reactions: Allergies Allergy/AdvReac Type Severity Reaction Status Date / Time No Known Allergies Allergy Verified 09/15/20 08:25 ED Review of Systems ROS: Stated complaint: RIGHT INDEX FINGER INJURY Other details as noted in HPI Comment: All other systems reviewed and negative ED Past Medical Hx - Past Medical History Previous Medical History?: Yes Hx Hypertension: Yes Hx Diabetes: Yes (Type 1) - Surgical History Past Surgical History?: No - Family History Family history: no significant - Social History Smoking Status: Current Some Day Smoker Substance Use Type: None - Medications Home Medications: Home Medications Medication Instructions Recorded Confirmed Last Taken Type Insulin Aspart (Nf) [NovoLOG 100 10 units SQ BID #200 units 12/01/18 03/10/20 Unknown Rx UNITS/ML VIAL] Insulin NPH Hum/Reg Insulin Hm 100 unit SQ BID #1 vial 05/12/19 03/10/20 Unknown Rx [Novolin 70-30 100 Unit/ml Vial] amLODIPine 2.5 mg PO QDAY #30 tablet 03/12/20 Unknown Rx cephALEXin [Keflex] 500 mg PO Q12HR #20 cap 09/15/20 Unknown Rx ED Abscess Boil Physical Exam - Exam General: Vital signs noted. No distress. Alert and acting appropriately. Exam: Yes Tenderness, Yes Normal Neurologic Exam, Yes Normal Circulation, No Fluctuance, No Surrounding Cellulites/Erythema, No Lymphangitis, No Crepitation, No Heart Murmur Exam: SMALL PARONYCHIA OF FINGER. DRAINING WHITE DISCHARGE I & D Note - I & D Note I & D Note: NA ED Course Vital Signs 09/15/20 08:27 Temperature 98.2 F Pulse Rate 96 H Respiratory 20 Rate Blood Pressure 129/88 O2 Sat by Pulse 95 Oximetry Critical care attestation.: If time is entered above; I have spent that time in minutes in the direct care of this critically ill patient, excluding procedure time. ED Medical Decision Making - Medical Decision Making DRAINING PARONYCHIA OF FINGER- NO I/D NEEDED PT HAS DM WILL TREAT GIVEN HER DM Vital Signs 09/15/20 08:27 Temperature 98.2 F Pulse Rate 96 H Respiratory 20 Rate Blood Pressure 129/88 O2 Sat by Pulse 95 Oximetry DC HOME WITH DC PLAN OF CARE INCLUDING MEDS, SOAKING IN EPSOM SALTS, PAIN MANAGEMENT AND FOLLOW UP WITH PCP. SHE VERBALIZES UNDERSTANDING OF PLAN OF CARE PT AMBULATORY NON ILL AND NON TOXIC ON DISCHARGE - Differential Diagnosis DRAINING PARANYCHIA ED Disposition Clinical Impression: Acute paronychia Disposition: DC-01 TO HOME OR SELFCARE Is pt being admited?: No Does the pt Need Aspirin: No Condition: Stable Instructions: Skin Abscess Additional Instructions: SOAK FINGER IN EPSOM SALTS/WARM WATER FOR 20 MINUTES EVERY 4 HOURS TODAY ALLOW IT TO DRAIN MED ORDERED TODAY FOR INFECTION MOTRIN OR TYLENOL FOR PAIN FOLLOW UP WITH PCP NEXT WEEK IF PAIN PERSISTS Prescriptions: cephALEXin [Keflex] 500 mg PO Q12HR #20 cap Referrals: MIGUEL LAMB MD [Staff Physician] - 3-5 Days Forms: Accompanied Note, Work/School Release Form(ED) Time of Disposition: 09:14
== END 2020-09-15 09:34 | disposition home or self-care (01) ==
LOC: ED 08:24
DX: L03.011 Cellulitis of right finger (principal); I10 Essential (primary) hypertension; E11.9 Type 2 diabetes mellitus without complications; F17.200 Nicotine dependence, unspecified, uncomplicated; Z79.4 Long term (current) use of insulin; Z79.899 Other long term (current) drug therapy
CPT/HCPCS: 99282

== ENCOUNTER 2020-10-01 07:02 | Emergency (ER) | payer SELFPAY ==
--- NOTE | 2020-10-01 09:17 | Emergency Department Report ---
ED Extremity Problem HPI - General Chief complaint: Extremity Problem,Nontraumatic Stated complaint: RIGHT FINGER INFECTION DIABETIC Time Seen by Provider: 10/01/20 08:14 Source: patient Mode of arrival: Ambulatory Limitations: No Limitations - History of Present Illness Initial comments: There is a pleasant 29-year-old female presents the emergency department chief complaint of swelling and pain to her right index finger over the past 2 to 3 weeks. She reports she sustained a superficial laceration and thinks it may be infected. She is diabetic and concerned about infection. She reports the pain is to the medial nail bed and in the finger pad. She denies any associated fevers, chills, night sweats, headache, dizziness, blurry vision, nausea, vomit, diarrhea, chest pain, shortness of breath, weakness or any other associated symptoms. Severity scale (0 -10): 10 - Related Data Previous Rx's Medication Instructions Recorded Last Taken Type Insulin Aspart (Nf) [NovoLOG 100 10 units SQ BID #200 units 12/01/18 Unknown Rx UNITS/ML VIAL] Insulin NPH Hum/Reg Insulin Hm 100 unit SQ BID #1 vial 05/12/19 Unknown Rx [Novolin 70-30 100 Unit/ml Vial] amLODIPine 2.5 mg PO QDAY #30 tablet 03/12/20 Unknown Rx cephALEXin [Keflex] 500 mg PO Q12HR #20 cap 09/15/20 Unknown Rx Acetaminophen with Codeine 1 tab PO Q6HR #12 tab 10/01/20 Unknown Rx [Acetaminophen-Codeine #4 TAB] Amoxicillin/Potassium Clav 1 each PO BID #20 tablet 10/01/20 Unknown Rx [Augmentin 875-125 Tablet] Allergies Allergy/AdvReac Type Severity Reaction Status Date / Time No Known Allergies Allergy Verified 09/15/20 08:25 ED Review of Systems ROS: Stated complaint: RIGHT FINGER INFECTION DIABETIC Other details as noted in HPI Comment: All other systems reviewed and negative Constitutional: denies: chills, fever Eyes: denies: eye pain, eye discharge, vision change ENT: denies: ear pain, throat pain Respiratory: denies: cough, shortness of breath, wheezing Cardiovascular: denies: chest pain, palpitations Endocrine: no symptoms reported Gastrointestinal: denies: abdominal pain, nausea, diarrhea Genitourinary: denies: urgency, dysuria, discharge Musculoskeletal: as per HPI. denies: back pain, joint swelling, arthralgia Skin: denies: rash, lesions Neurological: denies: headache, weakness, paresthesias Psychiatric: denies: anxiety, depression Hematological/Lymphatic: denies: easy bleeding, easy bruising ED Past Medical Hx - Past Medical History Previous Medical History?: Yes Hx Hypertension: Yes Hx Diabetes: Yes (Type 1) - Surgical History Past Surgical History?: No - Social History Smoking Status: Current Some Day Smoker Substance Use Type: None - Medications Home Medications: Home Medications Medication Instructions Recorded Confirmed Last Taken Type Insulin Aspart (Nf) [NovoLOG 100 10 units SQ BID #200 units 12/01/18 03/10/20 Unknown Rx UNITS/ML VIAL] Insulin NPH Hum/Reg Insulin Hm 100 unit SQ BID #1 vial 05/12/19 03/10/20 Unknown Rx [Novolin 70-30 100 Unit/ml Vial] amLODIPine 2.5 mg PO QDAY #30 tablet 03/12/20 Unknown Rx cephALEXin [Keflex] 500 mg PO Q12HR #20 cap 09/15/20 Unknown Rx Acetaminophen with Codeine 1 tab PO Q6HR #12 tab 10/01/20 Unknown Rx [Acetaminophen-Codeine #4 TAB] Amoxicillin/Potassium Clav 1 each PO BID #20 tablet 10/01/20 Unknown Rx [Augmentin 875-125 Tablet] ED Physical Exam - General Limitations: No Limitations General appearance: alert, in no apparent distress - Head Head exam: Present: atraumatic, normocephalic - Eye Eye exam: Present: normal appearance, PERRL, EOMI Pupils: Present: normal accommodation - ENT ENT exam: Present: normal exam, normal orophraynx, mucous membranes moist - Neck Neck exam: Present: normal inspection. Absent: tenderness, meningismus - Respiratory Respiratory exam: Present: normal lung sounds bilaterally. Absent: respiratory distress, wheezes, rales, rhonchi, stridor - Cardiovascular Cardiovascular Exam: Present: regular rate, normal rhythm. Absent: systolic murmur, diastolic murmur, rubs, gallop - GI/Abdominal GI/Abdominal exam: Present: soft, normal bowel sounds. Absent: distended, tenderness, guarding, rebound, rigid - Extremities Exam Extremities exam: Present: normal inspection, full ROM, tenderness (Mild tenderness palpation to the right second digit distal finger pad as well as a paronychia and suspected felon. No sausage digit. No pain to the flexor surface. No flexor posturing and full active range of motion with minimal pain) - Back Exam Back exam: Present: normal inspection - Neurological Exam Neurological exam: Present: alert, oriented X3 - Psychiatric Psychiatric exam: Present: normal affect, normal mood - Skin Skin exam: Present: warm, dry, intact, normal color. Absent: rash ED Course Vital Signs 10/01/20 07:38 Temperature 98.1 F Pulse Rate 97 H Respiratory 18 Rate O2 Sat by Pulse 98 Oximetry - I & D Right Finger Type of Procedure: Simple Site: Right index finger Blade Size: 11 I & D Procedure: betadine prep, sterile drapes applied Progress: The patient gave verbal consent. I then cleaned the area with Betadine prep. I then made a 1 cm incision over the area of most fluctuance on the medial portion of the finger. Approximately 3 mL of purulent drainage was then expressed. The wound was thoroughly irrigated and a sterile bandage was applied. Patient tolerated the procedure well. Less than 5 mL of blood loss. ED Medical Decision Making - Medical Decision Making The patient's paronychia was drained without complication. Sterile bandage was placed. Knavel criteria was negative and the patient had no symptoms of infectious flexor tenosynovitis. I did give the return precautions for any of the symptoms to return to the emergency department. I recommend she follow-up with her primary care doctor, do warm soapy water soaks 5 minutes every hour and I will send her home with Augmentin and Tylenol 3 for pain. Recommend she return to the emergency department if she develops any changing worsening symptoms. She verbalized understanding the diagnosis, treatment plan and follow-up instructions and all of her questions were answered. - Differential Diagnosis Paronychia, felon, contusion Critical care attestation.: If time is entered above; I have spent that time in minutes in the direct care of this critically ill patient, excluding procedure time. ED Disposition Clinical Impression: Paronychia Disposition: DC-01 TO HOME OR SELFCARE Is pt being admited?: No Condition: Stable Instructions: Paronychia Prescriptions: Acetaminophen with Codeine [Acetaminophen-Codeine #4 TAB] 1 tab PO Q6HR #12 tab Amoxicillin/Potassium Clav [Augmentin 875-125 Tablet] 1 each PO BID #20 tablet Referrals: OMID MOORE MD [Staff Physician] - 3-5 Days Forms: Work/School Release Form(ED) Time of Disposition: 09:28
[2020-10-01 09:44] VITALS: BP 145/80
== END 2020-10-01 10:05 | disposition home or self-care (01) ==
LOC: ED 07:02
DX: L03.011 Cellulitis of right finger (principal); I10 Essential (primary) hypertension; E11.9 Type 2 diabetes mellitus without complications; F17.200 Nicotine dependence, unspecified, uncomplicated; Z79.899 Other long term (current) drug therapy

== ENCOUNTER 2021-04-08 13:19 | Emergency (ER) | payer SELFPAY ==
[2021-04-08 13:47] VITALS: BP 187/116
--- NOTE | 2021-04-08 14:18 | Emergency Department Report ---
ED ENT HPI - General Chief complaint: Dental/Oral Stated complaint: TOOTHACHE Time Seen by Provider: 04/08/21 14:09 Source: patient Mode of arrival: Ambulatory Limitations: No Limitations - History of Present Illness Initial comments: 30-year-old female presents to the ER today with complaints of dental pain. Patient reports pain to her left upper anterior tooth. She states that she chipped a tooth about 3 weeks ago while eating and since then she has been having pain. She states that she has been taking ibuprofen without much relief. She states that she did call her dentist but they are unable to see her until next month so she came into the ER to see if we can give her something to help the pain. Patient blood pressure noted to be elevated at triage. Patient also requesting refill on her blood pressure medication. She states that she has been out for about a month. She states that she recently started a new job and is waiting for insurance which does not take effect for 90 days. She reports no symptoms of headache, dizziness, focal weakness, chest pain or any additional symptoms at this time. MD complaint: tooth pain -: week(s) (3 weeks ) - Related Data Previous Rx's Medication Instructions Recorded Last Taken Type Insulin Aspart (Nf) [NovoLOG 100 10 units SQ BID #200 units 12/01/18 Unknown Rx UNITS/ML VIAL] Insulin NPH Hum/Reg Insulin Hm 100 unit SQ BID #1 vial 05/12/19 Unknown Rx [Novolin 70-30 100 Unit/ml Vial] Acetaminophen with Codeine 1 tab PO Q6HR #12 tab 04/08/21 Unknown Rx [Acetaminophen-Codeine #4 TAB] Amoxicillin [Trimox CAP] 500 mg PO Q8H #30 capsule 04/08/21 Unknown Rx Ketorolac [Toradol] 10 mg PO Q6H PRN #20 tab 04/08/21 Unknown Rx amLODIPine 5 mg PO QDAY #30 tablet 04/08/21 Unknown Rx Allergies Allergy/AdvReac Type Severity Reaction Status Date / Time No Known Allergies Allergy Verified 09/15/20 08:25 ED Dental HPI - General Chief complaint: Dental/Oral Stated complaint: TOOTHACHE Time Seen by Provider: 04/08/21 14:09 Source: patient Mode of arrival: Ambulatory Limitations: No Limitations - Related Data Previous Rx's Medication Instructions Recorded Last Taken Type Insulin Aspart (Nf) [NovoLOG 100 10 units SQ BID #200 units 12/01/18 Unknown Rx UNITS/ML VIAL] Insulin NPH Hum/Reg Insulin Hm 100 unit SQ BID #1 vial 05/12/19 Unknown Rx [Novolin 70-30 100 Unit/ml Vial] Acetaminophen with Codeine 1 tab PO Q6HR #12 tab 04/08/21 Unknown Rx [Acetaminophen-Codeine #4 TAB] Amoxicillin [Trimox CAP] 500 mg PO Q8H #30 capsule 04/08/21 Unknown Rx Ketorolac [Toradol] 10 mg PO Q6H PRN #20 tab 04/08/21 Unknown Rx amLODIPine 5 mg PO QDAY #30 tablet 04/08/21 Unknown Rx Allergies Allergy/AdvReac Type Severity Reaction Status Date / Time No Known Allergies Allergy Verified 09/15/20 08:25 ED Review of Systems ROS: Stated complaint: TOOTHACHE Other details as noted in HPI Comment: All other systems reviewed and negative Constitutional: denies: chills, diaphoresis, fever, malaise, weakness Eyes: denies: eye pain, eye discharge, vision change ENT: dental pain. denies: ear pain, throat pain Respiratory: denies: cough, shortness of breath, SOB with exertion, SOB at rest, wheezing Gastrointestinal: denies: abdominal pain, nausea, vomiting, diarrhea, constipation, hematemesis, hematochezia Musculoskeletal: denies: back pain, joint swelling, arthralgia Skin: denies: rash, lesions, change in color, change in hair/nails, pruritus Neurological: denies: headache, weakness, numbness, paresthesias, confusion, abnormal gait, vertigo Psychiatric: denies: anxiety, depression, auditory hallucinations, visual hallucinations, homicidal thoughts, suicidal thoughts Hematological/Lymphatic: denies: easy bleeding, easy bruising, swollen glands ED Past Medical Hx - Past Medical History Previous Medical History?: Yes Hx Hypertension: Yes Hx Diabetes: Yes (Type 1) - Surgical History Past Surgical History?: No - Social History Smoking Status: Current Some Day Smoker Substance Use Type: None - Medications Home Medications: Home Medications Medication Instructions Recorded Confirmed Last Taken Type Insulin Aspart (Nf) [NovoLOG 100 10 units SQ BID #200 units 12/01/18 03/10/20 Unknown Rx UNITS/ML VIAL] Insulin NPH Hum/Reg Insulin Hm 100 unit SQ BID #1 vial 05/12/19 03/10/20 Unknown Rx [Novolin 70-30 100 Unit/ml Vial] Acetaminophen with Codeine 1 tab PO Q6HR #12 tab 04/08/21 Unknown Rx [Acetaminophen-Codeine #4 TAB] Amoxicillin [Trimox CAP] 500 mg PO Q8H #30 capsule 04/08/21 Unknown Rx Ketorolac [Toradol] 10 mg PO Q6H PRN #20 tab 04/08/21 Unknown Rx amLODIPine 5 mg PO QDAY #30 tablet 04/08/21 Unknown Rx ED Physical Exam - General Limitations: No Limitations General appearance: alert, in no apparent distress - Head Head exam: Present: atraumatic, normocephalic, normal inspection - Eye Eye exam: Present: normal appearance, PERRL, EOMI Pupils: Present: normal accommodation - ENT ENT exam: Present: mucous membranes moist - Expanded ENT Exam Expanded Mouth exam: Present: normal external inspection. Absent: drooling, trismus, muffled voice, tongue normal, tongue elevation, laceration 1 - Fractured, Dental Tenderness (severe), Other (small abscess noted; no facial swelling or cellulitis) Throat exam: Positive: normal inspection - Neck Neck exam: Present: normal inspection, full ROM. Absent: meningismus - Respiratory Respiratory exam: Present: normal lung sounds bilaterally. Absent: respiratory distress, wheezes, rales, rhonchi - Cardiovascular Cardiovascular Exam: Present: regular rate, normal rhythm, normal heart sounds - GI/Abdominal GI/Abdominal exam: Present: soft. Absent: distended, tenderness, guarding, broderick ound - Neurological Exam Neurological exam: Present: alert, oriented X3, CN II-XII intact, normal gait - Psychiatric Psychiatric exam: Present: normal affect, normal mood - Skin Skin exam: Present: intact ED Course Vital Signs 04/08/21 13:43 Temperature 98.5 F Pulse Rate 100 H Respiratory 16 Rate Blood Pressure 187/116 [Left] O2 Sat by Pulse 97 Oximetry Critical care attestation.: If time is entered above; I have spent that time in minutes in the direct care of this critically ill patient, excluding procedure time. ED Disposition Clinical Impression: Abscess, dental, Medication refill, Uncontrolled hypertension Disposition: 01 HOME / SELF CARE / HOMELESS Is pt being admited?: No Does the pt Need Aspirin: No Condition: Stable Instructions: Dental Abscess, Managing Your Hypertension, Hypertension, Adult, Hypertension (ED) Prescriptions: Acetaminophen with Codeine [Acetaminophen-Codeine #4 TAB] 1 tab PO Q6HR #12 tab amLODIPine 5 mg PO QDAY #30 tablet Ketorolac [Toradol] 10 mg PO Q6H PRN #20 tab PRN Reason: Pain Amoxicillin [Trimox CAP] 500 mg PO Q8H #30 capsule Referrals: OMID MOORE MD [Staff Physician] - 3-5 Days Forms: Work/School Release Form(ED) Time of Disposition: 14:24
== END 2021-04-08 14:54 | disposition home or self-care (01) ==
LOC: ED 13:19
DX: K04.7 Periapical abscess without sinus (principal); I10 Essential (primary) hypertension; Z76.0 Encounter for issue of repeat prescription; E10.9 Type 1 diabetes mellitus without complications; F17.200 Nicotine dependence, unspecified, uncomplicated; Z79.4 Long term (current) use of insulin; Z79.899 Other long term (current) drug therapy
CPT/HCPCS: 99282

== ENCOUNTER 2021-05-09 17:59 | Emergency (ER) | payer SELFPAY ==
[2021-05-09 19:28] VITALS: BP 149/106
[2021-05-09] MEDS ORDERED: HYDROcodone/ACETAMINOPHEN 5-325 MG TAB PO ONE (20:41)
[2021-05-09] MEDS ORDERED: KETOROLAC 10 MG TAB PO ONE (20:41)
[2021-05-09] MEDS ORDERED: CYCLOBENZAPRINE 10 MG TAB PO ONE (20:41)
--- NOTE | 2021-05-09 20:45 | Emergency Department Report ---
ED Neck Pain/Injury HPI - General Chief Complaint: Neck Pain/Injury Stated Complaint: NECK PAIN Time Seen by Provider: 05/09/21 20:06 Mode of arrival: Ambulatory Limitations: No Limitations - History of Present Illness Initial Comments: 30-year-old female with past medical history of diabetes and hypothyroidism presents to the emergency department for evaluation of left neck pain that started around 2 PM today. She states that she just started having pain and tightness to her left neck that was not improved with rubbing BenGay on it or applying heat. She denies injury, vision changes, dizziness, changes in gait, photophobia, and headache. MD Complaint: neck pain -: Sudden, hour(s) Place: home Radiation: left lateral, left shoulder Severity: severe Severity scale (0 -10): 10 Quality: aching Consistency: constant Associated Symptoms: denies: headache, fever, numbness, tingling, weakness, vertigo, difficulty walking, swollen glands, difficulty swallowing, nausea, vomiting Treatments Prior to Arrival: heat therapy - Related Data Previous Rx's Medication Instructions Recorded Last Taken Type Insulin Aspart (Nf) [NovoLOG 100 10 units SQ BID #200 units 12/01/18 Unknown Rx UNITS/ML VIAL] Insulin NPH Hum/Reg Insulin Hm 100 unit SQ BID #1 vial 05/12/19 Unknown Rx [Novolin 70-30 100 Unit/ml Vial] Acetaminophen with Codeine 1 tab PO Q6HR #12 tab 04/08/21 Unknown Rx [Acetaminophen-Codeine #4 TAB] Amoxicillin [Trimox CAP] 500 mg PO Q8H #30 capsule 04/08/21 Unknown Rx Ketorolac [Toradol] 10 mg PO Q6H PRN #20 tab 04/08/21 Unknown Rx amLODIPine 5 mg PO QDAY #30 tablet 04/08/21 Unknown Rx Cyclobenzaprine [Flexeril] 10 mg PO TID PRN #21 tab 05/09/21 Unknown Rx Lidocaine [Lidoderm] 1 each TP DAILY #10 patch 05/09/21 Unknown Rx Naproxen [Naprosyn] 500 mg PO BID #14 tab 05/09/21 Unknown Rx Allergies Allergy/AdvReac Type Severity Reaction Status Date / Time No Known Allergies Allergy Verified 09/15/20 08:25 ED Review of Systems ROS: Stated complaint: NECK PAIN Other details as noted in HPI Comment: All other systems reviewed and negative Constitutional: denies: chills, diaphoresis, fever, malaise, weakness Eyes: denies: eye pain, eye discharge ENT: denies: ear pain, throat pain, dental pain Respiratory: denies: cough, orthopnea, shortness of breath, SOB with exertion, SOB at rest, wheezing Cardiovascular: denies: chest pain, palpitations, dyspnea on exertion, orthopnea, edema, syncope, paroxysmal nocturnal dyspnea Endocrine: no symptoms reported Gastrointestinal: denies: abdominal pain, nausea, vomiting, diarrhea, constipation, hematemesis, melena, hematochezia Genitourinary: denies: urgency, dysuria, frequency, hematuria, discharge Musculoskeletal: denies: back pain Skin: denies: rash, lesions, change in color Neurological: denies: headache, weakness, numbness, paresthesias, confusion, abnormal gait Psychiatric: denies: anxiety, depression Hematological/Lymphatic: denies: easy bleeding, easy bruising ED Past Medical Hx - Past Medical History Previous Medical History?: Yes Hx Hypertension: Yes Hx Diabetes: Yes (Type 1) - Surgical History Past Surgical History?: No - Social History Smoking Status: Never Smoker Substance Use Type: None - Medications Home Medications: Home Medications Medication Instructions Recorded Confirmed Last Taken Type Insulin Aspart (Nf) [NovoLOG 100 10 units SQ BID #200 units 12/01/18 03/10/20 Unknown Rx UNITS/ML VIAL] Insulin NPH Hum/Reg Insulin Hm 100 unit SQ BID #1 vial 05/12/19 03/10/20 Unknown Rx [Novolin 70-30 100 Unit/ml Vial] Acetaminophen with Codeine 1 tab PO Q6HR #12 tab 04/08/21 Unknown Rx [Acetaminophen-Codeine #4 TAB] Amoxicillin [Trimox CAP] 500 mg PO Q8H #30 capsule 04/08/21 Unknown Rx Ketorolac [Toradol] 10 mg PO Q6H PRN #20 tab 04/08/21 Unknown Rx amLODIPine 5 mg PO QDAY #30 tablet 04/08/21 Unknown Rx Cyclobenzaprine [Flexeril] 10 mg PO TID PRN #21 tab 05/09/21 Unknown Rx Lidocaine [Lidoderm] 1 each TP DAILY #10 patch 05/09/21 Unknown Rx Naproxen [Naprosyn] 500 mg PO BID #14 tab 05/09/21 Unknown Rx ED Physical Exam - General Limitations: No Limitations General appearance: alert, in no apparent distress - Head Head exam: Present: atraumatic, normocephalic - Eye Eye exam: Present: normal appearance, PERRL. Absent: conjunctival injection, p eriorbital swelling, periorbital tenderness Pupils: Present: normal accommodation - Neck Neck exam: Present: normal inspection, tenderness (Left side only). Absent: full ROM - Expanded Neck Exam Expanded Neck exam: Absent: tenderness (No vertebral tenderness noted), anterior neck swelling 1 - Tenderness to palpation and pain with movement - Respiratory Respiratory exam: Present: normal lung sounds bilaterally. Absent: respiratory distress, wheezes, rales, rhonchi, chest wall tenderness - Cardiovascular Cardiovascular Exam: Present: regular rate, normal heart sounds - GI/Abdominal GI/Abdominal exam: Present: soft, normal bowel sounds. Absent: distended, tenderness, guarding, rebound, rigid - Extremities Exam Extremities exam: Present: normal inspection - Back Exam Back exam: Present: normal inspection. Absent: tenderness, CVA tenderness (R), CVA tenderness (L) - Neurological Exam Neurological exam: Present: alert, oriented X3 - Expanded Neurological Exam Expanded Patient oriented to: Present: person, place Speech: Present: fluid speech Cranial nerves: EOM's Intact: Normal, Gag Reflex: Normal, Tongue Deviation: Normal, Nystagmus: Normal, Facial Sensation: Normal, Facial Palsy with Forehead Movement: Normal, Facial Palsy without Forehead Movement: Normal Ataxia: Absent: yes Sensory exam: Upper Extremity Light Touch: Normal, Upper Extremity Temperature: Normal, Lower Extremity Light Touch: Normal, Lower Extremity Temperature: Normal Motor strength exam: RUE: 5, LUE: 5, RLE: 5, LLE: 5 Best Eye Response (Silvia): (4) open spontaneously Best Motor Response (Silvia): (6) obeys commands Best Verbal Response (Silvia): (5) oriented [place] Total: 15 - Psychiatric Psychiatric exam: Present: normal affect, normal mood - Skin Skin exam: Present: warm, dry, intact, normal color ED Course Vital Signs 05/09/21 05/09/21 19:25 20:55 Temperature 98.0 F Pulse Rate 99 H Respiratory 18 16 Rate Blood Pressure 149/106 [Right] O2 Sat by Pulse 98 Oximetry ED Medical Decision Making - Medical Decision Making 30-year-old female with past medical history of diabetes and hypothyroidism presents to the emergency department for evaluation of left neck pain that started around 2 PM today. She states that she just started having pain and tightness to her left neck that was not improved with rubbing BenGay on it or applying heat. She denies injury, vision changes, dizziness, changes in gait, photophobia, and headache. Exam consistent with musculoskeletal pain only. Patient will be treated for pain with anti-inflammatories and muscle relaxant along with lidocaine patch to apply as needed. She was advised to take medications as prescribed and follow- up with primary care provider if no improvement or worsening symptoms. Critical care attestation.: If time is entered above; I have spent that time in minutes in the direct care of this critically ill patient, excluding procedure time. ED Disposition Clinical Impression: Neck pain on left side Disposition: 01 HOME / SELF CARE / HOMELESS Is pt being admited?: No Does the pt Need Aspirin: No Condition: Stable Instructions: Neck Exercises, Musculoskeletal Pain, Cervical Sprain, [id number] Additional Instructions: Take medications as prescribed. Follow-up with primary care provider if no improvement or worsening symptoms. Prescriptions: Cyclobenzaprine [Flexeril] 10 mg PO TID PRN #21 tab PRN Reason: Muscle Spasm Lidocaine [Lidoderm] 1 each TP DAILY #10 patch Naproxen [Naprosyn] 500 mg PO BID #14 tab Referrals: ERNESTO BRITT MD [Referring] - 3-5 Days Forms: Work/School Release Form(ED) Time of Disposition: 20:45
== END 2021-05-09 21:44 | disposition home or self-care (01) ==
LOC: ED 17:59
DX: M54.2 Cervicalgia (principal); I10 Essential (primary) hypertension; E11.9 Type 2 diabetes mellitus without complications
CPT/HCPCS: 99282